=== PATIENT | male | born 1940 | race Caucasian/White ===

== ENCOUNTER → 2024-03-22 14:24 | Outpatient (CLI) | payer OTHER, SELFPAY ==
--- NOTE | 2024-03-22 14:28 | EKG_ITS ---
[facility] [address] [place] [address] Test Date: 2024-03-22 Pat Name: Kj Curtis Department: [facility] Room: Gender: Male [employer] Supervisor: VIKI : 1940 Requested By: Order Number: [id number] Reading MD: Oz Cunningham MD Measurements Intervals [place] Rate: 80 P: 49 OR: 158 QRS: -27 QRSD: 128 T: 14 QT: 402 QTc: 463 Interpretive Statements Normal sinus rhythm Right bundle branch block NO PRIOR TRACING Electronically Signed On 03-23-2024 16:16:51 PST by Oz Cunningham MD
[2024-03-22 15:00] LABS: Appearance Urine UA CLEAR; Bilirubin Urine UA NEGATIVE (NEGATIVE); Color Urine UA YELLOW; Glucose Urine UA NEGATIVE (Negative); Ketones Urine UA NEGATIVE (NEGATIVE); Leukocyte Esterase Urine UA NEGATIVE (NEGATIVE); Nitrite Urine UA NEGATIVE (Negative); Occult Blood Urine UA NEGATIVE (Negative); Protein Urine UA NEGATIVE (Negative); Specific Gravity Urine UA 1.025 (1.000-1.035); Urobilinogen Urine UA 0.2 E.U./dL (0.2)
[2024-03-22 15:09] LABS: Bacteria Urine None Seen; Culture Indicated Urine Cult Not Indicated; RBC Urine None Seen (0-5/HPF); Squamous Epithelial Cell Urine None Seen (0-5/HPF); Urine Volume 10mL (spun); WBC Urine None Seen (0-5/HPF)
[2024-03-22 15:26] LABS: Add Manual Diff / Slide Review NO; Basophils Absolute Auto 0 /uL (0-100); Basophils Percent Auto 0.7 % (0-2); Eosinophils Absolute Auto 100 /uL (0-450); Eosinophils Percent Auto 2.8 % (2-4); Hemoglobin 13.1 g/dL (13.5-17.5); Lymphocytes Absolute Auto 1100 /uL (1100-4500); Lymphocytes Percent Auto 21.7 % (25-40); Mean Corpuscular HGB Conc 34.4 % (30-36); Mean Corpuscular Hemoglobin 30.8 PG (26-34); Mean Corpuscular Volume 89.6 fL (80-100); Monocytes Absolute Auto 500 /uL (0-900); Neutrophils Absolute Auto 3200 /uL (1500-7000); Neutrophils Percent Auto 64.8 % (50-75); Platelet Count 259 X10^3/uL (150-400); Red Blood Cell Count 4.24 X10^6/uL (4.5-5.9); Red Cell Distribution Width 13.8 % (11.6-14.8)
[2024-03-22 15:33] LABS: Hemoglobin A1C% w Est Avg Glu 5.7 % (4.0-6.0)
[2024-03-22 15:41] LABS: BUN Creatinine Ratio 21.1 (6-22); Blood Urea Nitrogen 28 mg/dL (9-20); Calcium 9.9 mg/dL (8.4-10.2); Carbon Dioxide 26 mmol/L (22-32); Chloride 106 mmol/L (98-107); Estimated Glomerular Filt Rate 54 mL/min (>60); Glucose 117 mg/dL (80-110); HEMOLYSIS < 15 (0-50); Potassium 4.6 mmol/L (3.4-5.1); Sodium 137 mmol/L (137-145)
== END ==
PROVIDERS: PCP Student in an Organized Health Care Education/Training Program; Referring Provider Orthopaedic Surgery; Visit Provider Orthopaedic Surgery
DX: Z01.818 Encounter for other preprocedural examination (principal); R73.9 Hyperglycemia, unspecified; Z01.812 Encounter for preprocedural laboratory examination; N39.0 Urinary tract infection, site not specified
CPT/HCPCS: 36415; 80048; 81001; 83036; 85025; 93005; 93010

== ENCOUNTER 2024-04-11 06:11 | Day surgery (SDC) | payer OTHER, SELFPAY ==
[2024-04-08 07:24] VITALS: BMI 30.5
[2024-04-11] VITALS (11 sets, daily range): BP systolic 88–146; BP diastolic 46–85; PULSE 61–85; RESP 16–18; TEMP 35.9–36.8; O2SAT 94–98; BMI 31.6; BMI 30.6
--- NOTE | 2024-04-11 | DI.RAD.S_ITS ---
PROCEDURE: XR HIP W PEL IF DONE RT 4V INDICATIONS: ANTERIOR TOTAL RIGHT HIP TECHNIQUE: 6 intraoperative view(s) of the hip acquired. COMPARISON: None. FINDINGS: Bones: Patient is status post right hip arthroplasty, with hardware components in expected positions. The hip joint appears congruent. The visualized bony structures appear intact. Soft tissues: Overlying postoperative changes are noted. No suspicious soft tissue densities. IMPRESSION: Expected digital acquisition imaging of intra- and post-operative appearance of a hip arthroplasty. Dictated by: Mehul Ellis M.D. on 04/11/2024 at 13:22 Approved by: Mehul Ellis M.D. on 04/11/2024 at 13:23
[2024-04-11] MEDS: ACETAMINOPHEN 325 MG TABLET 975 MG PO (07:07)
[2024-04-11] MEDS: LACTATED RINGERS 1,000 ML 42 ML IV ×2 (07:07→10:07)
--- NOTE | 2024-04-11 07:19 | PM.PREOP ---
Pre-operative Note Interval Note History & Physical reviewed/Exam performed by Physician: Yes Changes to H&P: No
--- NOTE | 2024-04-11 07:28 | DI.RAD.S_ITS ---
PROCEDURE: XR HIP W PEL IF DONE RT 2V INDICATIONS: right octaviano TECHNIQUE: AP pelvis and lateral view of the hip acquired. COMPARISON: None. FINDINGS: Bones: Patient is status post right hip arthroplasty, with hardware components in expected positions. The hip joint appears congruent. The visualized bony structures appear intact. Soft tissues: Overlying postoperative changes are noted. No suspicious soft tissue densities. IMPRESSION: Expected post-operative appearance of a hip arthroplasty. Dictated by: Kaye Conner MD, PhD on 04/11/2024 at 10:56 Approved by: Kaye Conner MD, PhD on 04/11/2024 at 10:57
[2024-04-11] MEDS: VANCOMYCIN 1,000 MG in SODIUM CHLORIDE 0.9% 250 ML 250 MG IV (07:36)
[2024-04-11] MEDS: CEFAZOLIN 2 GM/100 ML PREMIX 100 ML IV ×2 (07:57→16:05)
--- NOTE | 2024-04-11 08:24 | SUR.OPER ---
Patient supine on padded Roca table, one arm on padded arm board at <90, other arm padded and secured with tape across patient's chest, both legs secured in padded traction boots and positioned per surgeon, padded post at patient's groin, pressure points checked and padded.
[2024-04-11] MEDS: BUPIVACAINE LIPOSOME 266 MG/20 ML VIAL INJ (08:37)
[2024-04-11] MEDS: BUPIVACAINE 0.25% (PF) 60 ML, EPINEPHrine 0.3 MG INJ (08:37)
[2024-04-11] MEDS: SODIUM CHLORIDE IRRIG SOLUTION 1,000 ML, TRANEXAMIC ACID 1,000 MG IRR (10:04)
--- NOTE | 2024-04-11 10:35 | PM.OP.1 ---
Operative Date/Time/Diagnoses Date of procedure: 04/11/24 Time of procedure: 08:00 Pre-op diagnosis: right hip OA Post-op diagnosis: same Procedure & Clinicians Procedure: Right total hip arthroplasty anterior approach Same procedure as scheduled: Yes Indications: The patient has had progressively worsening right hip pain with radiographic changes consistent with arthritis. Non-operative management has failed and the patient has requested total hip replacement. The risks, benefits and alternatives to surgery were discussed with the patient prior to proceeding. Risks discussed included, but were not limited to, failure to relieve pain, leg length discrepancy, dislocation, stiffness, infection, nerve damage, deep venous thrombosis, pulmonary embolism, stroke, coma, heart attack, permanent paralysis and , as well as the potential need for eventual revision of the prosthetic. Surgeon: Patti Hurtado Log Preparer: Ovidio Trujillo Anesthesia Type: General and Spinal Operative Notes Findings: Severe right hip OA, adequate stability, adequate bone Closure Type: primary Specimen(s): none sent Prosthetic devices, grafts, tissues, transplants, or devices: Hurtado and nephew size 54 R3 cup, +4 poly liner,one 6.5 mm screw, 36+ 0 femoral head, polar stem size 2 lateral Estimated Blood Loss (mL): 250 Blood products transfused: none Procedure in detail: The patient was brought to the operating room. Patient was carefully positioned in the supine position. Time-out was performed and antibiotics were given. Anesthesia was induced. He was positioned in the on the table in order to allow hyperextension of the hip. The right lower extremity was prepped and draped in a standard sterile fashion. An anterior right hip incision was made 1 fingerbreadth lateral to the anterior superior iliac spine and extended distally towards the greater trochanter. Dissection was carried out through skin and subcutaneous tissues. Superficial hemostasis was achieved. The fascia over the tensor fascia blanca was defined and incised with a knife. Two Allis clamps were used to grasp the fascia. Tensor fascia blanca was retracted laterally. A gelpi retractor was placed. Dissection was carried out down along the neck. The circumflex vessels were carefully identified and cauterized with the Aqua Mantis. A PA was used during the procedure and was essential for intraoperative retraction and safe implantation of the components. There was good visualization of the femoral neck. A Cobra was placed superior to the neck and the gluteus fibers were carefully stripped from that superior aspect of the capsule. A 2nd retractor was placed along the inferior aspect of the neck. The rectus insertion along the capsule was partially released. A 3rd retractor that was then gently placed over the rim of the acetabulum under the rectus. Capsule was carefully incised and released from the intertrochanteric line circumferentially superior to the mid sagittal line and inferiorly to the mid sagittal line until the lesser trochanter was palpable. A tag stitch was placed both in the superior and inferior limb of the capsular insertion. Along the acetabulum capsule was also released up to the mid sagittal 12:00 position. A portion of the labrum was resected. A saw was used to perform an osteotomy at the level of the intertrochanteric line and the junction of the superior femoral neck leaving approximately 1 finger breath of residual inferior neck above the lesser trochanter. A 2nd cut was made along the femoral neck at the base of the head and a napkin ring of neck was removed. Corkscrew was placed in the femoral head and the head was removed without difficulty. Retractors were then repositioned around the acetabulum. Residual labrum was resected and additional osteophytes were removed. A reamer that was 4 mm below the templated size was placed by hand in the acetabulum and it was reamed to centralize the acetabulum. It was then reamed up to 2 under the templated size and fluoroscopy was brought in to confirm the position of the reaming and depth of reaming. I reamed 1 under the anticipated size. A trial cup was placed and noted that it was appropriately sized and fluoroscopy confirmed position and depth. The component was open and inserted without difficulty fluoroscopic imaging was used to confirm that the cup had been adequately seated and was well positioned. It was further stabilized with a single screw. +4 poly liner was placed. The cup was tested and noted to be stable. Attention was then directed to the femur. The femur was gently hyperextended additional capsular release was performed as needed in order to allow adequate visualization of the proximal femur with elevation of the femur. Patient was placed in a hyperextended slightly adducted position with maximum external rotation. Box osteotome was used to check for any residual neck as well as sclerotic bone along the trochanter. [place] pepper was placed in the femur. Additional broaching was performed. Canal finder was used to determine the alignment of the canal and position. Size 1 broach was placed. The canal was then appropriately broached up to the templated size as long as there was adequate stability of the broach and serial advancement of the broach without excessive impingement. Specific attention was directed at avoiding varus attempting to direct the distal aspect of the broach more anteriorly and avoiding excessive anteversion. Trial reduction showed acceptable range of motion, good stability, no posterior impingement, baptist of leg length and appropriate lateral shuck. I also hyperflexed the hip and checked that there was no impingement anteriorly and there was good stability with flexion, adduction and internal rotation. Marcaine and Exparel were injected. The stem was placed without difficulty. Repeat trial reduction and x-ray showed acceptable overall position, length, and no evidence of the femoral fracture. Final head was placed. Wound was meticulously irrigated with normal saline. The hip was reduced and additional Exparel and Marcaine were injected. The capsule was closed with interrupted nonabsorbable sutures. The fascia of the tensor was closed with interrupted and running Vicryl. No drain was placed. Any tensor fascia blanca muscle that appeared to be contused or injured which was a minimal amount was carefully resected. Capsule around the tensor was injected with Exparel and Marcaine. The skin was closed with barbed stitches for the subcutaneous tissue and skin. We also used surgical glue. The wound was dressed sterilely. Brief Betadine soak was also used and was meticulously irrigated with normal saline. Patient was transferred to recovery room in satisfactory condition. Complications: none Post-operative Condition: stable Disposition: Acute Care Plan for aftercare: The patient will be maintained on a standard total hip replacement protocol with weight bearing as tolerated and anterior hip precautions. The patient will receive Aspirin and sequential compression devices for DVT prophylaxis. The patient will be discharged home when safe for the home environment.
[2024-04-11] MEDS: LACTATED RINGERS 1,000 ML 100 ML IV (11:24)
--- NOTE | 2024-04-11 11:25 | PC.NURSE ---
Addendum entered by Caro Bell R.N. 04/11/24 14:52: Patient up to stand and became slightly orthostatic. Blood pressure systolic 88. He did complain of nausea but that has been better now that he is sitting down. This RN will check his blood pressure in a half and hour. Original Note: Assess- Patient admitted to room 219, he had a r.total anterior hip replacement. Aquacel dressing is cdi. Patient has an epidural site to his mid lower back that is cdi, red left groing, and his incision. He had a spinal and general and has feeling to both knees but only feels slight pressure on his bilateral feet. He has LR infusing at 100cc/hr and he is resting now.
--- NOTE | 2024-04-11 12:03 | PT-IP ANOTE ---
PT order received and PT reviews chart. Pt BP and HR 118/75, 67 in LUE. PT receives PLOF information. Pt with low pain but unable to fully feel LEs at this time and cannot move B ankles or knees. Will hold PT assessment and OOB with PT until a later time. Pt can get up with nsg as appropriate as well.
[2024-04-11] MEDS: IBUPROFEN 400 MG TABLET PO ×2 (13:02→18:52)
[2024-04-11] MEDS: ACETAMINOPHEN 325 MG TABLET 650 MG PO ×2 (13:02→18:52)
[2024-04-11] MEDS: OXYCODONE IR 5 MG TABLET PO ×3 (13:03→18:51)
--- NOTE | 2024-04-11 13:17 | PT.IIE ---
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 Basement and pt does not have to go down there 2 steps and no rail, left corner of house he hands onto to ascend steps Home Environment Walk in Shower,Built-In Shower Seat Home Equipment Front Wheel Walker,Straight Cane,Raised Toilet Seat w/ Armrests,Hand Held Shower,Grab Bars Near Toilet,Grab Bars In Shower Employment Status Retired M2 PT-IP Current Condition Start: 04/11/24 11:25 Freq: NEEDED Status: Active Protocol: Document 04/11/24 12:49 MB (Rec: 04/11/24 13:17 MB [id number]) Physical Therapy Current Condition Current Condition Evaluation Date 04/11/24 Treatment Diagnosis Right anterior THR M3 PT-IP Subjective Start: 04/11/24 11:25 Freq: NEEDED Status: Active Protocol: Document 04/11/24 12:49 MB (Rec: 04/11/24 13:17 MB [id number]) Subjective Physical Therapy Visit Type Type Initial Evaluation Visit Start Time 12:49 Visit Stop Time 13:07 Number of HAND SLITTER Visits 0 Physical Therapy Visit Comments Patient Comments Pt is agreeable to PT, he can feel his legs more now than he could 50 minutes ago. Therapy Pain Assessment Pain When Pain Assessed During Mobility Pain Present Pain Present Pain Reported Location Right hip and thigh Intensity 5 Scale Used Numeric (0 - 10) M4 PT-IP Mobility and Gait Start: 04/11/24 11:25 Freq: NEEDED Status: Active Protocol: Document 04/11/24 12:49 MB (Rec: 04/11/24 13:17 MB [id number]) PT-Bed Mobility Assessment Supine to Sit Supine to Sit Standby Assistance,1 Person Assistance,Head of Bed Elevated,Bedrails Scooting Scooting to Edge of Bed Standby Assistance PT-Transfer Assessment Sit to and From Stand Sit to and from Stand Contact Guard Assistance Equipment Transfer Assistive Device Gait Belt,Front Wheeled Walker Orthotic/Prosthetic Devices or Brace: No Transfers Transfer Destination Chair Transfer Technique Stepping Transfer Ability Level of Assist Minimal Assistance,1 Person Assistance,Use of Upper Extremities Comments Mobility Comments Pt states he does not know if he can move his right leg d/t pain and so PT makes loop in gait belt and puts around pt's right foot and he uses it to scoot his leg to the right Cues for stepping and pt has trouble following cues BP and HR in LUE: hook lying 138/78, 76; standing 133/75, 92; standing after short gait 143/74, 91. Gait Assessment Gait Gait Assistance Required: Minimum Assistance Distance (Feet) 2 Able to Maintain Weight Bearing Status Yes During Gait Assistive Devices Assistive Device Gait Belt,Front Wheeled Walker Orthotic/Prosthetic Devices or Brace: No Gait Deviations General Gait Pattern Antalgic,Decreased Stride Length,Decreased Feet Clearance,Step-to Gait Factors Limiting Gait Function Factors Limiting Gait Function Decreased Activity Tolerance, Decreased Sensation,Decreased Strength,Difficulty Following Directions,Incoordination, Limited Range of Motion,Pain, Poor Balance,Poor Safety Awareness Comments Gait Comments Poor awareness/proprioception legs and safety awareness as well as ability to understand cues for step-to for initial gait pattern to allow gait to chair and so PT stops cueing for this PT-Balance Assessment Sitting Balance and Reactions Static Sitting Balance Ability Good Dynamic Sitting Balance Ability Good Standing Balance and Reactions Static Standing Balance Ability Good Dynamic Standing Balance Ability Fair Device Used RW M5 PT-IP Objective Assessments Start: 04/11/24 11:25 Freq: NEEDED Status: Active Protocol: Document 04/11/24 12:49 MB (Rec: 04/11/24 13:17 MB [id number]) Orientation Orientation/Cognition Level of Alertness Alert Orientation Name,Age,Birthday,Month,Date, Year,Day of Week,Place, Situation Language Function Ability No Deficits Noted Safety Awareness Decreased Safety Awareness Memory Description No Deficits Noted Gross Range of Motion Upper Extremity ROM Impairments Defer to OT Lower Extremity ROM Assessment Right Impaired Strength Lower Extremity Strength Assessment Right Impaired Comments Strength Comments Pt limites right hip and knee movement and does not tolerate MMT d/t pain Coordination Assessment Gross Coordination Gross Coordination Impaired Sensation Assessment Comments Sensation Comments LE sensation not completely returned/decreased proprioception and pins and needles Muscle Tone Muscle Tone WNL Yes M6 PT-IP Treatment Start: 04/11/24 11:25 Freq: NEEDED Status: Active Protocol: Document 04/11/24 12:49 MB (Rec: 04/11/24 13:17 [id number]) Physical Therapy Treatment Exercises Exercises Ankle Pumps,Gluteal Sets,Quad Sets,Heel Slides Education Education Provided Precautions,Weight Bearing Status,Post-Op Packet,Safety Other Treatments Other Treatment Performed Demo stair training with step up with good foot first and then sore leg, demo HS that he will perform in supine M7 PT-IP Assessment and Plan Start: 04/11/24 11:25 Freq: NEEDED Status: Active Protocol: Document 04/11/24 12:49 MB (Rec: 04/11/24 13:17 [id number]) PT Summary Assessment and Plan Potential Rehabilitation Potential Good Status of Condition at Evaluation Evolving Summary Impairments Pain,ROM,Strength,Balance, Coordination,Sensation,Bed Mobility,Transfers,Gait, Activity Tolerance Progress Towards Goals Slow Progress due to Medical Issues Assessment Summary Pt is an 84 y/o male s/p same day right anterior THR. PT checks on pt twice and he has little sensation at 1200 and more sensation at 1249. He c/o pins and needles pain in right hip and thigh with bed mobility and states that he does not know if he will be able to move. Nsg to bring in pain medication. PT sets up looped gait belt for pt to use to help get right leg to the right EOB and pt uses this. He moves slowly and uses HOB and bed rail to get up to EOB. He is not orthostatic. He has decreased gait tolerance this afternoon and trouble following stepping cues. Not ready to try stair training at this time. PT ed pt and in HEP, precautions and PT demos stair training and ed that he will need to use RW and no SPC at d/c for gait. Pt is on wait list for OPPT. Goals Bed Mobility Goal Independent Transfer Goal Independent,Front Wheeled Walker Gait Goal Independent,Front Wheel Walker Gait Distance 150 Other Goals Pt will ascend and descend 2 steps with LRAD and no more than min A to allow safe home entrance. Days to Meet Goals 2 Frequency of Treatment Frequency Of Treatment Twice a Day Treatment Plan Physical Therapy Treatment Plan Bed Mobility Training,Transfer Training,Gait Training, Therapeutic Exercise,Balance Retraining,Post Op Education, Discharge Planning,Hot or Cold Pack,Neuromuscular Re-ed, Coordination Retraining,Manual Therapy Precautions Other Precautions No hyperextension right hip Weight Bearing Status Weight Bearing Status Weight Bear as Tolerated Recommendations To Nursing Amount of Assist Needed 1 Person Assist Discharge Recommendations PT Discharge Recommendations Home with 31/10 Assist Available,Outpatient PT Transportation Needs at Discharge Private Vehicle
--- NOTE | 2024-04-11 15:28 | PT-IP ANOTE ---
PT checks back on pt who is up in the chair and he reports high pain if he moves and he received pain medication already. asking about more pain medication and PT re-ed pt and that ns states it is not time. MAIL ROOM reports his BP dropped with standing. Will not progress gait or step at this time and con't PT efforts at a later time or date.
--- NOTE | 2024-04-11 15:51 | OT.IPNOTE ---
Pt having high pain and low BP. To see pt tomorrow for OT eval.
[2024-04-11] MEDS: hydrOXYzine HCL 25 MG TABLET PO (21:01)
[2024-04-11] MEDS: ATORVASTATIN 20 MG TABLET 40 MG PO (21:01)
[2024-04-11] MEDS: TAMSULOSIN 0.4 MG CAPSULE 0.8 MG PO (21:01)
[2024-04-11] MEDS: diphenhydrAMINE 25 MG TABLET PO (21:01)
[2024-04-11] MEDS: DOCUSATE 100 MG CAPSULE PO (21:02)
[2024-04-11] MEDS: FINASTERIDE 5 MG TABLET PO (21:02)
[2024-04-11] MEDS: ASPIRIN EC 81 MG TABLET PO (21:02)
[2024-04-12] MEDS: CEFAZOLIN 2 GM/100 ML PREMIX 100 ML IV (01:05)
[2024-04-12] MEDS: hydrOXYzine HCL 25 MG TABLET PO ×2 (01:29→09:26)
[2024-04-12] MEDS: OXYCODONE IR 5 MG TABLET PO ×2 (01:29→09:27)
[2024-04-12 06:39] LABS: Hematocrit 33.6 % (41-53); Hemoglobin 11.5 g/dL (13.5-17.5)
[2024-04-12 08:00] VITALS: BP 120/64; PULSE 60; RESP 19; TEMP 36.4; O2SAT 97
--- NOTE | 2024-04-12 08:46 | P.DS_ITS ---
History of Present Illness History of Present Illness Date Patient Seen: 04/12/24 Time Patient Seen: 08:30 Chief complaint: OPB Narrative: The patient has had progressively worsening right hip pain with radiographic changes consistent with arthritis. Non-operative management has failed and the patient has requested total hip replacement. The risks, benefits and alternatives to surgery were discussed with the patient prior to proceeding. Risks discussed included, but were not limited to, failure to relieve pain, leg length discrepancy, dislocation, stiffness, infection, nerve damage, deep venous thrombosis, pulmonary embolism, stroke, coma, heart attack, permanent paralysis and , as well as the potential need for eventual revision of the prosthetic. Discharge Providers Provider Discharge Date: 04/12/24 Primary care physician: Shirley Mitchell MD Consults: 04/11/24 07:27 Consult to Anesthesiology Routine Comment: Consulting Provider: Anesthesiologist Reason for consultation: Regional block for post operative pain control 04/11/24 11:06 Consult to Discharge Planning Routine Comment: Consult to Occupational Therapy Evaluate & Treat Comment: Physician Instructions: Evaluate and treat Consult to Physical Therapy Evaluate & Treat Comment: Physician Instructions: post op MONTY protocol Discharge provider: Sher Benjamin PA-C Summary Hospital Course Discharge Diagnosis: right hip OA Hospital Course: Procedure: Right total hip arthroplasty anterior approach Same procedure as scheduled: Yes Surgeon: Patti Hurtado Senior Research Consultant: Ovidio Trujillo Anesthesia Type: General and Spinal Operative Notes Findings: Severe right hip OA, adequate stability, adequate bone Closure Type: primary Specimen(s): none sent Prosthetic devices, grafts, tissues, transplants, or devices: Hurtado and nephew size 54 R3 cup, +4 poly liner,one 6.5 mm screw, 36+ 0 femoral head, polar stem size 2 lateral Estimated Blood Loss (mL): 250 Blood products transfused: none Status at Discharge Cognitive/behavioral status at discharge: oriented Functional status at discharge: uses cane/walker Overall status at discharge: patient is back to baseline Time Spent with Patient Time spent: Less than 30 minutes Exam Vital Signs (past 8 hours): Oxygen Delivery Method Room Air Oxygen Flow Rate 0 Narrative Exam Narrative: Patient found sitting comfortably in bed today. Only complaint is having some cramping over his right hip along the surgical site. Otherwise pain is controlled with oral medications. Denies any new numbness or tingling down his right leg. Denies any nausea vomiting fever or chills. 5/5 strength in hip flexors, quadriceps, hamstrings, DF, PF, EHL bilaterally. Sensation to light touch intact throughout BLE. Calves soft, compressible, nontender. ?Dressing placed intraoperatively CDI. Resp Effort & Inspection: normal respiratory effort and able to speak in complete sentences Objective Labs 04/12/24 06:21 Labs: Laboratory Results - last 24 hr 04/12/24 06:21 Hgb 11.5 L Hct 33.6 L PFSH Medical History History of COVID-19 (2019) BCC (basal cell carcinoma) Pre-diabetes HLD (hyperlipidemia) Neoplasm of uncertain behavior of right kidney BPH w urinary obs/LUTS Incomplete emptying of bladder Prostate cancer (~2019) Abnormal prostate biopsy Nodular prostate Surgical History Hx of LASIK History of surgery History of back surgery (~1979) H/O circumcision Social History household members: spouse Smoking Status: Never smoker alcohol intake: current Discharge Assessment & Plan Assessment and Plan Assessment: Status post right MONTY Plan of Treatment: Discharge to home. Ambulate as tolerated with assistive devices. Aspirin 81 mg twice a day for 6 weeks for DVT prevention. Baseline pain relief with acetaminophen 650 mg q.6 hours as needed and ibuprofen 400 mg q.4 hours PRN. Patient has been prescribed oxycodone 5 mg q.4 hours for any breakthrough pain. Initiate physical therapy in the next 5-10 days. Follow up in clinic in 2 weeks for wound check. Discharge Plan Discharge Plan Patient Disposition: Home Provider Discharge Comment: DC pending PT approval Discharge orders & Medications Discharge Orders: Discharge (Order); Ordered 04/12/24 Ordered By: Sher Benjamin Prescriptions: New aspirin 81 mg Tablet,Delayed Release (Dr/Ec) 81 mg PO BID Qty: 90 0RF acetaminophen 325 mg Tablet 650 mg PO Q6H PRN (Reason: Fever/Mild Pain (1-3)) Qty: 120 0RF ibuprofen 400 mg Tablet 400 mg PO Q4H PRN (Reason: Pain, Mild (1-3)) Qty: 100 0RF hydroxyzine HCl 25 mg Tablet 25 mg PO Q6H PRN (Reason: Nausea) Qty: 40 1RF docusate sodium 100 mg Capsule 100 mg PO BID Qty: 20 0RF Continued atorvastatin 40 mg Tablet 40 mg PO BEDTIME tamsulosin 0.4 mg Capsule 0.8 mg PO BEDTIME Aleve PM 220-25 mg Tablet 1 tab PO BEDTIME finasteride 5 mg tablet 5 mg PO BEDTIME omega-3 fatty acids [Fish Oil Concentrate] 1,000 mg capsule 1,000 mg PO DAILY Follow up/Referrals: Shirley Mitchell MD [Primary Care Provider] - Diet/Activity/Treatments Diet: Diet as Tolerated Activity: Ambulate multiple times a day. Use a cane or walker as needed. Full weight on leg. Cold/Heat Therapy: Use ice multiple times a day. Skin/Wound/Dressing Care Skin care: Leave dressing on. Okay to shower Report to your healthcare provider any signs of infection, such as:: chills, fever, night sweats, unusual drainage and unusual redness Dressing: Leave dressing in place until follow up in office. No bathing or otherwise soaking incision. Call the office if the dressing becomes saturated inside. Visit Report/Discharge Packet Instructions: DI for Hip Replacement, DI for Prescription Opioid Use Stand Alone Forms: Patient Portal/API, Surgery Discharge Discharge Data Primary Care Provider: Shirley Mitchell Attending Provider: Patti Hurtado VTE Deep Vein Thrombosis/Pulmonary Embolism Present on Admission: No
[2024-04-12] MEDS: ASPIRIN EC 81 MG TABLET PO (09:00)
[2024-04-12] MEDS: ACETAMINOPHEN 325 MG TABLET 650 MG PO (09:26)
[2024-04-12] MEDS: IBUPROFEN 400 MG TABLET PO (09:26)
[2024-04-12] MEDS: FISH OIL 1,000 MG CAPSULE 1000 MG PO (09:26)
[2024-04-12] MEDS: DOCUSATE 100 MG CAPSULE PO (09:26)
--- NOTE | 2024-04-12 10:30 | PT.IPTN ---
Current Diagnoses Unilateral primary osteoarthritis, right hip (04/11/24) Surgery Performed Operation Date: 04/11/24 07:45 Actual Procedures p Total Hip Arthroplasty/Anterior Approach(Right) - Patti Hurtado MD Physical Therapy Treatment Note M2 PT-IP Current Condition Start: 04/11/24 11:25 Freq: NEEDED Status: Active Protocol: Document 04/11/24 12:49 MB (Rec: 04/11/24 13:17 MB [id number]) Physical Therapy Current Condition Current Condition Evaluation Date 04/11/24 Treatment Diagnosis Right anterior THR M3 PT-IP Subjective Start: 04/11/24 11:25 Freq: NEEDED Status: Active Protocol: Document 04/12/24 10:53 TS (Rec: 04/12/24 11:03 TS [id number]) Subjective Physical Therapy Visit Type Type Treatment Note Visit Start Time 10:30 Visit Stop Time 10:50 Number of CONTACT LENS CURVE GRINDER Visits 1 Physical Therapy Visit Comments Patient Comments Pt found resting in bed, he is agreeable to PT. Therapy Pain Assessment Pain When Pain Assessed During Mobility Pain Present Pain Present Pain Reported M4 PT-IP Mobility and Gait Start: 04/11/24 11:25 Freq: NEEDED Status: Active Protocol: Document 04/12/24 10:53 TS (Rec: 04/12/24 11:03 TS [id number]) PT-Bed Mobility Assessment Supine to Sit Supine to Sit Minimal Assistance,1 Person Assistance,Head of Bed Elevated,Bedrails Scooting Scooting to Edge of Bed Standby Assistance PT-Transfer Assessment Sit to and From Stand Sit to and from Stand Minimal Assistance Equipment Transfer Assistive Device Gait Belt,Front Wheeled Walker Orthotic/Prosthetic Devices or Brace: No Comments Mobility Comments Supine to sit Dalton with CURING OVEN TENDER for uprighting trunk. STS with FWW Dalton for standing balance while pt uses urinal. Pt ambulates 20' SBA with FWW, pt requires cues for step sequencing, has difficulty recalling R from L. He performs stairs x2 with use of single rail and CURING OVEN TENDER. pt was left sitting in the chair, all needs met. Gait Assessment Gait Gait Assistance Required: Standby Assistance Distance (Feet) 20 Able to Maintain Weight Bearing Status Yes During Gait Assistive Devices Assistive Device Gait Belt,Front Wheeled Walker Orthotic/Prosthetic Devices or Brace: No Gait Deviations General Gait Pattern Antalgic,Decreased Stride Length,Decreased Feet Clearance,Step-to Gait Factors Limiting Gait Function Factors Limiting Gait Function Decreased Activity Tolerance, Decreased Sensation,Decreased Strength,Difficulty Following Directions,Incoordination, Limited Range of Motion,Pain, Poor Balance,Poor Safety Awareness Stair Climbing Assessment Evaluation Level of Assist On Stairs Contact Guard Assistance,1 Person Assistance Devices Stair Climbing Assistive Devices Right Railing Technique/Endurance Stair Climbing Direction Ascend and Descend Stair Climbing Technique Step to Step Number of Steps Climbed 2 PT-Balance Assessment Sitting Balance and Reactions Static Sitting Balance Ability Good Dynamic Sitting Balance Ability Good Standing Balance and Reactions Static Standing Balance Ability Good Dynamic Standing Balance Ability Fair Device Used FWW M5 PT-IP Objective Assessments Start: 04/11/24 11:25 Freq: NEEDED Status: Active Protocol: Document 04/11/24 12:49 MB (Rec: 04/11/24 13:17 MB [id number]) Orientation Orientation/Cognition Level of Alertness Alert Orientation Name,Age,Birthday,Month,Date, Year,Day of Week,Place, Situation Language Function Ability No Deficits Noted Safety Awareness Decreased Safety Awareness Memory Description No Deficits Noted Gross Range of Motion Upper Extremity ROM Impairments Defer to OT Lower Extremity ROM Assessment Right Impaired Strength Lower Extremity Strength Assessment Right Impaired Comments Strength Comments Pt limites right hip and knee movement and does not tolerate MMT d/t pain Coordination Assessment Gross Coordination Gross Coordination Impaired Sensation Assessment Comments Sensation Comments LE sensation not completely returned/decreased proprioception and pins and needles Muscle Tone Muscle Tone WNL Yes M6 PT-IP Treatment Start: 04/11/24 11:25 Freq: NEEDED Status: Active Protocol: Document 04/12/24 10:53 TS (Rec: 04/12/24 11:03 [id number]) Physical Therapy Treatment Education Education Provided Precautions,Weight Bearing Status,Post-Op Packet,Safety M7 PT-IP Assessment and Plan Start: 04/11/24 11:25 Freq: NEEDED Status: Active Protocol: Document 04/12/24 10:53 TS (Rec: 04/12/24 11:03 [id number]) PT Summary Assessment and Plan Potential Rehabilitation Potential Good Summary Impairments Pain,ROM,Strength,Balance, Coordination,Sensation,Bed Mobility,Transfers,Gait, Activity Tolerance Progress Towards Goals Slow Progress due to Medical Issues Assessment Summary Kj is making progress with his mobility. He requires handrail assist for bed mobility. He progressed his gait to ~20'SBA with FWW. He has some difficulty recalling step sequencing. He progressed to stairs x2 and performed well. PT is recommending pt return home with assist. Goals Bed Mobility Goal Independent Transfer Goal Independent,Front Wheeled Walker Gait Goal Independent,Front Wheel Walker Gait Distance 150 Other Goals Pt will ascend and descend 2 steps with LRAD and no more than min A to allow safe home entrance. Days to Meet Goals 2 Frequency of Treatment Frequency Of Treatment Twice a Day Treatment Plan Physical Therapy Treatment Plan Bed Mobility Training,Transfer Training,Gait Training, Therapeutic Exercise,Balance Retraining,Post Op Education, Discharge Planning,Hot or Cold Pack,Neuromuscular Re-ed, Coordination Retraining,Manual Therapy Precautions Other Precautions No hyperextension right hip Weight Bearing Status Weight Bearing Status Weight Bear as Tolerated Recommendations To Nursing Amount of Assist Needed 1 Person Assist Discharge Recommendations PT Discharge Recommendations Home with Assistance, Outpatient PT Transportation Needs at Discharge Private Vehicle
--- NOTE | 2024-04-12 11:30 | OT.IP.EVAL ---
Current Diagnoses Unilateral primary osteoarthritis, right hip (04/11/24) Surgery Performed Operation Date: 04/11/24 07:45 Actual Procedures p Total Hip Arthroplasty/Anterior Approach(Right) - Patti Hurtado MD Past Medical History (Last Reviewed 04/11/24 @ 06:48 by Shirley Engle, RN) Abnormal prostate biopsy BCC (basal cell carcinoma) BPH w urinary obs/LUTS History of COVID-19 (2019) HLD (hyperlipidemia) Incomplete emptying of bladder Neoplasm of uncertain behavior of right kidney Nodular prostate Pre-diabetes Prostate cancer (~2019) Surgical History (Last Reviewed 04/11/24 @ 06:48 by Shirley Engle, RN) H/O circumcision History of back surgery (~1979) History of surgery Hx of [facility] Occupational Therapy Inpatient Evaluation/Re-Eval M1 PT/OT-IP Prior Functional Status Start: 04/11/24 11:25 Freq: NEEDED Status: Active Protocol: Document 04/12/24 11:32 [facility] (Rec: 04/12/24 11:45 [facility] [id number]) Medical Review Prior Functional Status Medical History Reviewed Yes Diet/Fluid Consistency Regular Communication WNLs Mobility and Gait I without AD Activities of Daily Living and IADL's I, drove. Pt's assist with right sock. Social History Household Members spouse Living Arrangements House Number of Floors (Floors) Two Floors Number of Stairs To Enter/Railing? Basement and pt does not have to go down there 2 steps and no rail, left corner of house he hands onto to ascend steps Home Environment Walk in Shower,Built-In Shower Seat Home Equipment Front Wheel Walker,Straight Cane,Raised Toilet Seat w/ Armrests,Hand Held Shower,Grab Bars Near Toilet,Grab Bars In Shower Employment Status Retired M2 OT-IP Current Condition Start: 04/12/24 11:31 Freq: Status: Active Protocol: Document 04/12/24 11:32 [facility] (Rec: 04/12/24 11:45 [facility] [id number]) Occupational Therapy Current Condition Current Condition Evaluation Date 04/12/24 Treatment Diagnosis S/P R MONTY Anterior Diagnosis Onset Date 04/11/24 M3 OT- IP Subjective and Pain Start: 04/12/24 11:31 Freq: Status: Active Protocol: Document 04/12/24 11:32 [facility] (Rec: 04/12/24 11:45 [facility] [id number]) OT- Subjective Occupational Therapy Visit Type Type Initial Evaluation Visit Start Time 10:59 Visit Stop Time 11:30 Occupational Therapy Visit Comments Patient Comments Pt not wanting to shower and agreed to get dressed. Patient/Caregiver Goals TO go home. OT Pain Assessment Pain When Pain Assessed At Rest Pain Present Pain Present Pain Reported Location Right hip and thigh Intensity 6 M4 OT- IP ADL's Start: 04/12/24 11:31 Freq: Status: Active Protocol: Document 04/12/24 11:32 [facility] (Rec: 04/12/24 11:45 [facility] [id number]) OT [id number] Comments OT Self-Feeding Comments NOt at meal time. OT ADL-Grooming Comments OT Grooming Comments NOt performed. OT ADL-Oral Care Comments Oral Care Comments NOt performed. OT ADL-Dressing General Eval Lower Body Dressing Ability Minimal Assistance Areas Needing Assistance Underpants/Brief,Pants/Shorts, Socks,Shoes Assistive Devices Dressing Assistive Devices Reinforcing Steel Erector,Sock Aid Comments OT Dressing Comments Pt's getting down to her knee to assist pt and needing assist to get up. Suggested pt get LB dressing equipment and to be sure to use proper body mechanics or sit down to assist pt. OT ADL-Toileting Comments OT Toileting Comments Suggested pt use a urinal at night. OT ADL-Bathing Comments OT Bathing Comments Pt will benefit from a shower chair. M5 OT- IP IADL's Start: 04/12/24 11:31 Freq: Status: Active Protocol: Document 04/12/24 11:32 [facility] (Rec: 04/12/24 11:45 [facility] [id number]) OT-Instrumental Activities of Daily Living Home Safety Awareness Home Safety Comments Pt is a bit groggy and bets to have assist from his at this time. Meal Preparation Meal Preparation Caregiver Provides Assist Clinical Safety Specialist Clinical Safety Specialist Caregiver Provides Assist M6 OT- IP Functional Cognition Start: 04/12/24 11:31 Freq: Status: Active Protocol: Document 04/12/24 11:32 [facility] (Rec: 04/12/24 11:45 [facility] [id number]) Cognitive Factors Limiting Selfcare Function Cognitive Ability Level of Alertness Alert,Drowsy Patient Orientation Name,Place,Situation Attention Span Ability Capable of Focused Attention, Capable of Sustained Attention Ability to Follow Commands Able to Follow One Step Commands Safety Awareness Underestimates Need for Assistance Cognitive Comments Cognitive Assessment Comments Pt a bit impulsive and needing reminders to slow down and use the FWW as trying to stand without. OT- Vision and Hearing OT- Hearing Assessment OT- Hearing Assessment WFL M7 OT- IP Mobility and Balance Start: 04/12/24 11:31 Freq: Status: Active Protocol: Document 04/12/24 11:32 [facility] (Rec: 04/12/24 11:45 [facility] [id number]) OT- Bed Mobility Assessment Supine to Sit Supine to Sit Assist Minimal Assistance Sit to Supine Sit to Supine Assist Minimal Assistance OT-Transfer Assessment Sit to and From Stand Sit to and from Stand Contact Guard Assistance Transfers Transfer Ability Standby Assistance Technique Transfer Destination Bed,Chair Devices Transfer Assistive Devices Gait Belt,Front Wheeled Walker Comments Mobility Comments GINGER to assist with his RLE into and out fo the bed at this time. Pt's able to assist and also trained how to assist him with gait belt and transfers. Suggested pt have neighbor to help assist pt into the house. OT- Balance Assessment Sitting Balance and Reactions Static Sitting Balance Ability Good Dynamic Sitting Balance Ability Good Standing Balance and Reactions Static Standing Balance Ability Good Dynamic Standing Balance Ability Good M8 OT- IP Objective Assessments Start: 04/12/24 11:31 Freq: Status: Active Protocol: Document 04/12/24 11:32 [facility] (Rec: 04/12/24 11:45 [facility] [id number]) OT Gross Range of Motion Upper Extremity Range of Motion ROM Impairments WFL for needs OT Strength Comments Strength Comments WFL for needs. M9 OT- IP Assessment and Plan Start: 04/12/24 11:31 Freq: Status: Active Protocol: Document 04/12/24 11:32 [facility] (Rec: 04/12/24 11:45 [facility] [id number]) OT Summary Assessment and Plan Potential Rehabilitation Potential Excellent Analytic Complexity at Evaluation Low Summary OT Impairments Pain,Balance,Functional Mobility,Dressing,Toileting, Bathing,Toilet Transfers, Shower Transfers Progress Towards Goals Progressing Toward Goals Assessment Summary Pt low complexity and main barriers are pain, steps, and needing assist to help get his RLE into and out of the bed. Pt to go home with his to assist 31/10 and go to outpt PT. Goals Self-Feeding Goal Independent Grooming Goal Independent Dressing Goal Independent,Reinforcing Steel Erector,Sock Aid Toileting Goal Independent Bathing Goal Standby Assistance Toilet Transfer Goal Independent Shower Transfer Goal Independent,Shower Chair Days to Meet Goals 5 Frequency of Treatment Other frequency 5x/week Treatment Plan OT Treatment Plan ADL Training,Functional Mobility,Patient/Family Education,Discharge Planning Discharge Recommendations OT Discharge Recommendations Home with 31/10 Assist Available,Outpatient PT Home Equipment Needs shower chair, LB dressing equipment Transportation Needs at Discharge Private Vehicle
--- NOTE | 2024-04-12 13:34 | CM.DANOTE ---
Initial DCP Assessment Note Pt is a 84 yo male, resident of [place], now POD#1 from [facility]t [facility]. PCP: Shirley Mitchell Payer: Rashel CONWAY Reviewed chart, pt discussed in multidisciplinary rounds this morning. Therapy has cleared pt for return home w/family to assist and pt has planned for home, DC order from Ortho has already been initiated this morning. No barriers identified at this time to patient's safe discharge home w/family to assist; close outpatient f/u recommended. CM team will plan to follow clinical course closely in case any DC needs or concerns arise. TERESA Novak Discharge Planning/Care Management CM Discharge Assessment Start: 04/12/24 13:31 Freq: Status: Active Protocol: Document 04/12/24 13:31 TERRA (Rec: 04/12/24 13:34 TERRA [id number]) Discharge Planning Assessment Assigned Portal Administrator TERESA Alejo DPOA/Assigned Designee Name Marah Curtis, spouse Contact Information [phone] Advance Directives? Yes Advance Directives on File No History Provided By Patient,Medical Record Prior Living Arrangements House Household Members spouse Type of transporation used prior to Drives own vehicle admit Independent with ADL's Yes Is patient alert and oriented? Yes Needs Assistance With Home Chores / Shopping Patient/Family Preference OP PT Therapy Barriers to Discharge No Discharge Plan Home Transportation Arrangement Spouse Referrals Initiated None needed
--- NOTE | 2024-04-12 14:16 | PC.NURSE ---
Discharge: Pt feels ready to d/c to home. PA here and gave d/c instructions. Seen by PT/OT and considered safe to go home. Discharge instructions given and reviewed. Po pain meds effective per pt. Vds w/out diff. Tolerates diet w/out problems. Feels ready to go home. Questions answered. Pt d/c to home via auto w/spouse.
== END 2024-04-12 12:15 | disposition home or self-care (01) ==
LOC: OR 06:12 → AC 06:13
PROVIDERS: PCP Student in an Organized Health Care Education/Training Program; Referring Provider Orthopaedic Surgery; Visit Provider Orthopaedic Surgery
PROC: (CPT 27130; principal; 2024-04-11 07:45)
DX: M16.11 Unilateral primary osteoarthritis, right hip (principal); M25.751 Osteophyte, right hip
CPT/HCPCS: 27130; 36415; 73502; 73503; 76000; 85014; 85018; 97161; 97165; 97530; 97535; C1776; A9270; C1713; J0171; J0666; J0690; J1100; J2405; J2704; J3010

== ENCOUNTER 2024-05-19 17:00 | Emergency (ER) | payer OTHER, SELFPAY ==
[2024-04-11 11:14] VITALS: BMI 30.6
[2024-05-19] VITALS (15 sets, daily range): BP systolic 100–129; BP diastolic 56–83; PULSE 62–91; RESP 11–27; TEMP 36.8; O2SAT 95–99; BMI 30.4
--- NOTE | 2024-05-19 17:13 | EKG_ITS ---
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
[2024-05-19 17:43] LABS: Add Manual Diff / Slide Review NO; Basophils Absolute Auto 100 /uL (0-100); Basophils Percent Auto 0.8 % (0-2); Eosinophils Absolute Auto 200 /uL (0-450); Eosinophils Percent Auto 2.5 % (2-4); Hematocrit 29.9 % (41-53); Lymphocytes Absolute Auto 600 /uL (1100-4500); Lymphocytes Percent Auto 7.5 % (25-40); Mean Corpuscular HGB Conc 33.5 % (30-36); Mean Corpuscular Hemoglobin 30.6 PG (26-34); Mean Corpuscular Volume 91.2 fL (80-100); Monocytes Absolute Auto 600 /uL (0-900); Monocytes Percent Auto 8.4 % (3-14); Neutrophils Absolute Auto 6100 /uL (1500-7000); Neutrophils Percent Auto 80.8 % (50-75); Platelet Count 435 X10^3/uL (150-400); Red Blood Cell Count 3.28 X10^6/uL (4.5-5.9); Red Cell Distribution Width 15.9 % (11.6-14.8); White Blood Cell Count 7.6 X10^3/uL (4.5-11.0)
[2024-05-19 17:47] LABS: Alanine Aminotransferase 263 IU/L (<50); Albumin 3.8 g/dL (3.5-5.0); Alkaline Phosphatase 495 U/L (38-126); Aspartate Aminotransferase 114 IU/L (17-59); BUN Creatinine Ratio 22.6 (6-22); Bilirubin Total 2.3 mg/dL (0.2-1.3); Blood Urea Nitrogen 24 mg/dL (9-20); Calcium 10.1 mg/dL (8.4-10.2); Carbon Dioxide 24 mmol/L (22-32); Chloride 100 mmol/L (98-107); Estimated Glomerular Filt Rate > 60 mL/min (>60); Globulin 3.7 g/dL (1.7-4.1); Glucose 133 mg/dL (80-110); HEMOLYSIS 30 (0-50); Potassium 4.8 mmol/L (3.4-5.1); Sodium 133 mmol/L (137-145); Total Protein 7.5 g/dL (6.3-8.2)
--- NOTE | 2024-05-19 18:12 | ED_ITS ---
HPI - Back Pain/Injury <Debbie Pederson, DO - Last Filed: 05/21/24 03:34> General Chief Complaint: Back Pain/Injury Stated Complaint: Back-Nerve Pain Time Seen by Provider: 05/19/24 17:36 Source: patient and EMS History of Present Illness HPI Narrative: Patient is a 84-year-old male history of angina recently admitted to [facility] on Pradaxa with chronic back pain presenting today with worsening back pain. No change in bowel or bladder habits has some numbness and tingling. Has been taking Dilaudid for pain. Reports that he had an MRI of his back over [facility]. He uses a walker. He was discharged 4 days ago reports he was getting up and moving around however due to pain not able to get up as much. Denies any sort of abdominal pain chest pain shortness of breath nausea vomiting fever or any other symptoms. He has not had any injections not on any sort of steroid does not have diabetes Related Data Home Medications Medication Instructions Recorded Confirmed omega-3 fatty acids 1,000 mg 1,000 mg PO DAILY 11/06/19 05/19/24 capsule (Fish Oil Concentrate) atorvastatin 40 mg tablet 40 mg PO BEDTIME 04/08/24 05/19/24 finasteride 5 mg tablet 5 mg PO BEDTIME 04/08/24 05/19/24 naproxen 220 mg-diphenhydramine 25 1 tab PO BEDTIME 04/08/24 05/19/24 mg tablet (Aleve PM) tamsulosin 0.4 mg capsule 0.8 mg PO BEDTIME 04/08/24 05/19/24 clopidogrel 75 mg tablet 75 mg DAILY 05/19/24 05/19/24 dabigatran etexilate 150 mg capsule 150 mg PO DAILY 05/19/24 05/19/24 glucosamine sulfate 750 mg tablet 1,500 mg PO DAILY 05/19/24 05/19/24 hydromorphone 2 mg tablet 1 mg PO Q6H PRN severe pain 05/19/24 05/19/24 isosorbide mononitrate 30 mg 30 mg PO DAILY 05/19/24 05/19/24 tablet,extended release 24 hr levothyroxine 25 mcg tablet 25 mcg PO QAM 05/19/24 05/19/24 metoprolol tartrate 25 mg tablet 25 mg PO BID 05/19/24 05/19/24 nitroglycerin 0.4 mg sublingual 0.4 mg sublingual PRN PRN Chest 05/19/24 05/19/24 tablet Pain omega 2-fie-hmf-fish oil 1,000 mg 2 cap PO DAILY 05/19/24 05/19/24 (120 mg-180 mg) capsule (Fish Oil) spironolactone 25 mg tablet 25 mg PO DAILY 05/19/24 05/19/24 Previous Rx's Medication Instructions Recorded acetaminophen 325 mg tablet 650 mg (2 x 325 mg) PO Q6H PRN 04/12/24 Fever/Mild Pain (1-3) #120 tabs aspirin 81 mg tablet,delayed 81 mg PO BID #90 tabs 04/12/24 release ibuprofen 400 mg tablet 400 mg PO Q4H PRN Pain, Mild (1-3) 04/12/24 #100 tabs Allergies Allergy/AdvReac Type Severity Reaction Status Date / Time methocarbamol [From Robaxin] AdvReac Mild Hallucinati Verified 04/08/24 09:14 ng Patient History <Debbie Pederson DO - Last Filed: 05/21/24 03:34> Medical History (Updated 05/20/24 @ 22:39 by Sher Kulkarni MD) History of COVID-19 (2019) BCC (basal cell carcinoma) Pre-diabetes HLD (hyperlipidemia) Neoplasm of uncertain behavior of right kidney BPH w urinary obs/LUTS Incomplete emptying of bladder Prostate cancer (~2019) Abnormal prostate biopsy Nodular prostate Surgical History Hx of LASIK History of surgery History of back surgery (~1979) H/O circumcision Social History household members: spouse Smoking Status: Never smoker alcohol intake: current Smoking Status: Never smoker Exam <DO Terrie Rosas Last Filed: 05/21/24 03:34> Initial Vital Signs Initial Vital Signs: Vital Signs Temperature 98.2 F 05/19/24 17:00 Pulse Rate 83 05/19/24 17:00 Respiratory Rate 18 05/19/24 17:00 Blood Pressure 125/77 05/19/24 17:00 Pulse Oximetry 98 05/19/24 17:00 Oxygen Delivery Method Room Air 05/19/24 17:00 GENERAL: Alert pleasant 84-year-old male lying down in no acute distress and in no acute distress. HEENT: Head atraumatic,EOMI, pupils reactive, face symmetric, moist mucous membranes CARDIOVASCULAR: Regular rate and rhythm without murmurs, rubs or gallops. RESPIRATORY: Breath sounds equal bilaterally, no wheezes rales or rhonchi. ABDOMEN: Soft, nontender. Normoactive bowel sounds all 4 quadrants. No guarding or rebound. Negative Temple's sign no right upper quadrant pain no epigastric pain EXTREMITIES: Normal range of motion, no clubbing or edema. Neurovascularly intact BACK: Lower lumbar pain tender to touch NEUROLOGICAL: Alert and oriented x4. No gross deficits SKIN: Warm, dry, no laceration, no petechiae, no rashes or lesions. <Sher Kulkarni MD - Last Filed: 05/20/24 21:19> Initial Vital Signs Initial Vital Signs: Vital Signs Temperature 98.2 F 05/19/24 17:00 Pulse Rate 83 05/19/24 17:00 Respiratory Rate 18 05/19/24 17:00 Blood Pressure 125/77 05/19/24 17:00 Pulse Oximetry 98 05/19/24 17:00 Oxygen Delivery Method Room Air 05/19/24 17:00 Course <Debbie Pederson DO - Last Filed: 05/21/24 03:34> Orders Ordered: Discontinued Medications Acetaminophen (Acetaminophen 325 Mg Tablet) 650 mg PO Q6H PRN PRN Reason: Pain, Mild (1-3) Last Admin: 05/20/24 12:08 Dose: 650 mg Documented By: MINNIE Aspirin (Aspirin Ec 81 Mg Tablet) 81 mg PO DAILY [facility] Last Admin: 05/20/24 12:08 Dose: 81 mg Documented By: MINNIE Atorvastatin Calcium (Atorvastatin 20 Mg Tablet) 40 mg PO BEDTIME [facility] Clopidogrel Bisulfate (Clopidogrel 75 Mg Tablet) 75 mg PO DAILY [facility] Last Admin: 05/20/24 13:17 Dose: 75 mg Documented By: MINNIE Dabigatran (Dabigatran 75 Mg Capsule) 150 mg PO DAILY [facility] Last Admin: 05/20/24 12:08 Dose: 150 mg Documented By: MINNIE Finasteride (Finasteride 5 Mg Tablet) 5 mg PO BEDTIME [facility] Fish Oil (Fish Oil 1,000 Mg Capsule) 1,000 mg PO DAILY [facility] Gabapentin (Gabapentin 100 Mg Capsule) 200 mg PO NOW ONE Stop: 05/19/24 20:35 Last Admin: 05/19/24 20:50 Dose: 200 mg Documented By: Hydromorphone HCl (Hydromorphone 1 Mg Inj) 1 mg IM NOW ONE Stop: 05/19/24 18:52 Last Admin: 05/19/24 18:54 Dose: 1 mg Documented By: TC Hydromorphone HCl (Hydromorphone 1 Mg Inj) 1 mg IV Q2HR PRN PRN Reason: Pain, Moderate (4-6) Last Admin: 05/20/24 19:42 Dose: 1 mg Documented By: Admin: 05/20/24 10:40 Dose: 1 mg Documented By: JODI Isosorbide Mononitrate (Isosorbide Mononitrate Er 30 Mg Tablet) 30 mg PO DAILY [facility] Last Admin: 05/20/24 12:09 Dose: 30 mg Documented By: MINNIE Levothyroxine Sodium (Levothyroxine 25 Mcg Tablet) 25 mcg PO DAILY@0600 [facility] Metoprolol Succinate (Metoprolol Er 25 Mg Tablet) 25 mg PO NOW ONE Stop: 05/19/24 20:34 Last Admin: 05/19/24 20:49 Dose: 25 mg Documented By: Metoprolol Tartrate (Metoprolol Ir 25 Mg Tablet) 25 mg PO BID [facility] Last Admin: 05/20/24 12:09 Dose: 25 mg Documented By: MINNIE Naloxone HCl (Naloxone 0.4 Mg/Ml Vial) 0.2 mg IV Q2MIN PRN PRN Reason: Opiate Reversal Spironolactone (Spironolactone 25 Mg Tablet) 25 mg PO DAILY [facility] Last Admin: 05/20/24 12:09 Dose: 25 mg Documented By: MINNIE Tamsulosin HCl (Tamsulosin 0.4 Mg Capsule) 0.4 mg PO BEDTIME [facility] Vital Signs Vital signs: Vital Signs - 8 hr 05/20/24 20:00 05/20/24 20:00 Pulse Rate 65 Respiratory Rate 22 Blood Pressure 103/65 Pulse Oximetry 96 <Sher Kulkarni MD - Last Filed: 05/20/24 21:19> Orders Ordered: Discontinued Medications Acetaminophen (Acetaminophen 325 Mg Tablet) 650 mg PO Q6H PRN PRN Reason: Pain, Mild (1-3) Last Admin: 05/20/24 12:08 Dose: 650 mg Documented By: MINNIE Aspirin (Aspirin Ec 81 Mg Tablet) 81 mg PO DAILY [facility] Last Admin: 05/20/24 12:08 Dose: 81 mg Documented By: KB Atorvastatin Calcium (Atorvastatin 20 Mg Tablet) 40 mg PO BEDTIME [facility] Clopidogrel Bisulfate (Clopidogrel 75 Mg Tablet) 75 mg PO DAILY [facility] Last Admin: 05/20/24 13:17 Dose: 75 mg Documented By: MINNIE Dabigatran (Dabigatran 75 Mg Capsule) 150 mg PO DAILY [facility] Last Admin: 05/20/24 12:08 Dose: 150 mg Documented By: KB Finasteride (Finasteride 5 Mg Tablet) 5 mg PO BEDTIME [facility] Fish Oil (Fish Oil 1,000 Mg Capsule) 1,000 mg PO DAILY [facility] Gabapentin (Gabapentin 100 Mg Capsule) 200 mg PO NOW ONE Stop: 05/19/24 20:35 Last Admin: 05/19/24 20:50 Dose: 200 mg Documented By: Hydromorphone HCl (Hydromorphone 1 Mg Inj) 1 mg IM NOW ONE Stop: 05/19/24 18:52 Last Admin: 05/19/24 18:54 Dose: 1 mg Documented By: TC Hydromorphone HCl (Hydromorphone 1 Mg Inj) 1 mg IV Q2HR PRN PRN Reason: Pain, Moderate (4-6) Last Admin: 05/20/24 19:42 Dose: 1 mg Documented By: Admin: 05/20/24 10:40 Dose: 1 mg Documented By: JODI Isosorbide Mononitrate (Isosorbide Mononitrate Er 30 Mg Tablet) 30 mg PO DAILY [facility] Last Admin: 05/20/24 12:09 Dose: 30 mg Documented By: MINNIE Levothyroxine Sodium (Levothyroxine 25 Mcg Tablet) 25 mcg PO DAILY@0600 [facility] Metoprolol Succinate (Metoprolol Er 25 Mg Tablet) 25 mg PO NOW ONE Stop: 05/19/24 20:34 Last Admin: 05/19/24 20:49 Dose: 25 mg Documented By: Metoprolol Tartrate (Metoprolol Ir 25 Mg Tablet) 25 mg PO BID [facility] Last Admin: 05/20/24 12:09 Dose: 25 mg Documented By: MINNIE Naloxone HCl (Naloxone 0.4 Mg/Ml Vial) 0.2 mg IV Q2MIN PRN PRN Reason: Opiate Reversal Spironolactone (Spironolactone 25 Mg Tablet) 25 mg PO DAILY [facility] Last Admin: 05/20/24 12:09 Dose: 25 mg Documented By: MINNIE Tamsulosin HCl (Tamsulosin 0.4 Mg Capsule) 0.4 mg PO BEDTIME [facility] Vital Signs Vital signs: Vital Signs - 8 hr 05/20/24 20:00 05/20/24 20:00 Pulse Rate 65 Respiratory Rate 22 Blood Pressure 103/65 Pulse Oximetry 96 MDM - Back Pain/Injury <Debbie Pederson, DO - Last Filed: 05/21/24 03:34> Lab Data 05/19/24 17:10 05/19/24 17:10 Labs: Lab Results 05/19/24 05/19/24 05/19/24 Range/Units 17:10 17:55 19:27 WBC 7.6 (4.5-11.0) X10^3/uL RBC 3.28 L (4.5-5.9) X10^6/uL Hgb 10.0 L (13.5-17.5) g/dL Hct 29.9 L (41-53) % MCV 91.2 (80-100) fL MCH 30.6 (26-34) PG MCHC 33.5 (30-36) % RDW 15.9 H (11.6-14.8) % Plt Count 435 H (150-400) X10^3/uL Neut % (Auto) 80.8 H (50-75) % Lymph % (Auto) 7.5 L (25-40) % [place] % (Auto) 8.4 (3-14) % Eos % (Auto) 2.5 (2-4) % Baso % (Auto) 0.8 (0-2) % Neut # (Auto) 6100 (2185-7723) /uL Lymph # (Auto) 600 L (0918-6397) /uL [place] # (Auto) 600 (0-900) /uL Eos # (Auto) 200 (0-450) /uL Baso # (Auto) 100 (0-100) /uL Sodium 133 L (137-145) mmol/L Potassium 4.8 (3.4-5.1) mmol/L Chloride 100 (98-107) mmol/L Carbon Dioxide 24 (22-32) mmol/L BUN 24 H (9-20) mg/dL Creatinine 1.06 (0.66-1.25) mg/dL Estimated GFR > 60 (>60) mL/min BUN/Creatinine Ratio 22.6 H (6-22) Glucose 133 H (80-110) mg/dL Lactate 1.5 (0.7-2.1) mmol/L Calcium 10.1 (8.4-10.2) mg/dL Total Bilirubin 2.3 H (0.2-1.3) mg/dL AST 114 H (17-59) IU/L ALT 263 H (<50) IU/L Alkaline Phosphatase 495 H (38-126) U/L Ammonia < 9 L (9-30) umol/L Total Creatine Kinase 64 (55-170) U/L Troponin I < 0.012 < 0.012 (0.01-0.034) ng/mL Total Protein 7.5 (6.3-8.2) g/dL Albumin 3.8 (3.5-5.0) g/dL Globulin 3.7 (1.7-4.1) g/dL Albumin/Globulin Ratio 1.0 (1.0-2.8) Lipase 171 (23-300) U/L Urine Color Urine Appearance Urine pH (4.5-8.0) Ur Specific [place] (1.000-1.035) Urine Protein (Negative) Urine Glucose (UA) (Negative) g/dL Urine Ketones (NEGATIVE) Urine Occult Blood (Negative) Urine Nitrate (Negative) Urine Bilirubin (NEGATIVE) Ur Bilirubin Confirm (Negative) Urine Urobilinogen (0.2) E.U./dL Ur Leukocyte Esterase (NEGATIVE) 05/19/24 Range/Units 20:58 WBC (4.5-11.0) X10^3/uL RBC (4.5-5.9) X10^6/uL Hgb (13.5-17.5) g/dL Hct (41-53) % MCV (80-100) fL MCH (26-34) PG MCHC (30-36) % RDW (11.6-14.8) % Plt Count (150-400) X10^3/uL Neut % (Auto) (50-75) % Lymph % (Auto) (25-40) % [place] % (Auto) (3-14) % Eos % (Auto) (2-4) % Baso % (Auto) (0-2) % Neut # (Auto) (3772-8127) /uL Lymph # (Auto) (3697-6631) /uL [place] # (Auto) (0-900) /uL Eos # (Auto) (0-450) /uL Baso # (Auto) (0-100) /uL Sodium (137-145) mmol/L Potassium (3.4-5.1) mmol/L Chloride (98-107) mmol/L Carbon Dioxide (22-32) mmol/L BUN (9-20) mg/dL Creatinine (0.66-1.25) mg/dL Estimated GFR (>60) mL/min BUN/Creatinine Ratio (6-22) Glucose (80-110) mg/dL Lactate (0.7-2.1) mmol/L Calcium (8.4-10.2) mg/dL Total Bilirubin (0.2-1.3) mg/dL AST (17-59) IU/L ALT (<50) IU/L Alkaline Phosphatase (38-126) U/L Ammonia (9-30) umol/L Total Creatine Kinase (55-170) U/L Troponin I (0.01-0.034) ng/mL Total Protein (6.3-8.2) g/dL Albumin (3.5-5.0) g/dL Globulin (1.7-4.1) g/dL Albumin/Globulin Ratio (1.0-2.8) Lipase (23-300) U/L Urine Color Yellow Urine Appearance Clear Urine pH 5.5 (4.5-8.0) Ur Specific [place] >=1.030 H (1.000-1.035) Urine Protein Negative (Negative) Urine Glucose (UA) Negative (Negative) g/dL Urine Ketones Negative (NEGATIVE) Urine Occult Blood Negative (Negative) Urine Nitrate Negative (Negative) Urine Bilirubin 1+ H (NEGATIVE) Ur Bilirubin Confirm Negative (Negative) Urine Urobilinogen 0.2 (0.2) E.U./dL Ur Leukocyte Esterase Negative (NEGATIVE) ECG Data Attestation: I personally reviewed and interpreted this ECG as follows: Prior ECG tracings: available for review Interpretation: Sinus rhythm rate 80 MN interval 154 QRS 128 QTC 440 right bundle-branch block noted no acute ischemia similar previous EKGs MDM Narrative Medical decision making narrative: MDM CC: Back pain Complicating co-morbidities: CAD status post stenting hyperlipidemia, pancreatic cancer history of DVT on Pradaxa. Data collected from: at bedside. Reports that patient does have elevated liver enzymes he was told to stop taking his statin Medical records reviewed: [facility] records from May 06 reviewed patient was admitted to [facility] for NSTEMI was transferred to [facility] for complex PCI on 04/21/2024 where he was found to have severe RCA disease treated with rotational atherectomy andXience ZHANG x2, patient is being evaluated for potential CABG. Was admitted to [facility] on the 27/10 with chest pain. He had an echocardiogram which did not show any new abnormalities it was recommended starting Ranexa and monitoring. During that admission he was found to have LFTs that were elevated without abdominal pain. 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 Was evaluated by GI as well during admission He was also complaining of chronic low back pain MRI lumbar spine with with contrast did show moderate to severe foraminal narrowing this was on May 14. He was given low-dose Dilaudid no Tylenol due to elevated LFTs. He has home health PT OT discharge he would evaluation with PT. He did have some mild ZORAIDA baseline creatinine 1.0 it was 1.25 on discharge from [facility] on 04/26/2024 Differential considered: Cauda equina abscess, cholelithiasis cholecystitis acute coronary syndrome Exam documented above, pertinent findings include: 84-year-old male continues to have lower lumbar pain difficult time raising legs sensation intact abdomen soft nontender no epigastric or right upper quadrant pain Lab Test results independently reviewed as above. Pertinent findings: Elevated LFT and bilirubin bilirubin 2.3, AST 114 ALT 263 alk-phos 495, down from earlier lab bili 6.9 AST 173 ALT 382 Lipase 171 Troponin negative Creatinine 1.0 No leukocytosis stable anemia Troponin negative x2 Independently reviewed EKG as above no ischemia Imaging studies independently reviewed: none Consultations: [ ] Treatments: Gabapentin Dilaudid Re-evaluations: [ ] Discussion: Patient 84-year-old male presenting today with acute on chronic back pain. He recently had MRI week ago which did show severe narrowing. He was no cauda equina symptoms at this time. I do not see need for further imaging. Blood work today is overall reassuring it was compared to blood work 05/14/2024 at [facility]. He is improvement of his liver enzymes and bilirubin but they still remain elevated. He had a full workup of this he has no abdominal pain. He did have an episode of chest pain here in the ED repeat troponin is also negative he has no EKGs changes. At this time discussion with patient and about goals. He was needing pain control for his back unable to get up and move secondary to pain talked about placed it rehab facility which he was open to. At this time does not meet admission criteria. Wait for PT/OT SCIENTIFIC TECHNICAL WRITER in am Signed out to Dr. Kulkarni <Sher Kulkarni MD - Last Filed: 05/20/24 21:19> Lab Data Labs: Lab Results 05/19/24 05/19/24 05/19/24 Range/Units 17:10 17:55 19:27 WBC 7.6 (4.5-11.0) X10^3/uL RBC 3.28 L (4.5-5.9) X10^6/uL Hgb 10.0 L (13.5-17.5) g/dL Hct 29.9 L (41-53) % MCV 91.2 (80-100) fL MCH 30.6 (26-34) PG MCHC 33.5 (30-36) % RDW 15.9 H (11.6-14.8) % Plt Count 435 H (150-400) X10^3/uL Neut % (Auto) 80.8 H (50-75) % Lymph % (Auto) 7.5 L (25-40) % [place] % (Auto) 8.4 (3-14) % Eos % (Auto) 2.5 (2-4) % Baso % (Auto) 0.8 (0-2) % Neut # (Auto) 6100 (0598-1660) /uL Lymph # (Auto) 600 L (6485-3053) /uL [place] # (Auto) 600 (0-900) /uL Eos # (Auto) 200 (0-450) /uL Baso # (Auto) 100 (0-100) /uL Sodium 133 L (137-145) mmol/L Potassium 4.8 (3.4-5.1) mmol/L Chloride 100 (98-107) mmol/L Carbon Dioxide 24 (22-32) mmol/L BUN 24 H (9-20) mg/dL Creatinine 1.06 (0.66-1.25) mg/dL Estimated GFR > 60 (>60) mL/min BUN/Creatinine Ratio 22.6 H (6-22) Glucose 133 H (80-110) mg/dL Lactate 1.5 (0.7-2.1) mmol/L Calcium 10.1 (8.4-10.2) mg/dL Total Bilirubin 2.3 H (0.2-1.3) mg/dL AST 114 H (17-59) IU/L ALT 263 H (<50) IU/L Alkaline Phosphatase 495 H (38-126) U/L Ammonia < 9 L (9-30) umol/L Total Creatine Kinase 64 (55-170) U/L Troponin I < 0.012 < 0.012 (0.01-0.034) ng/mL Total Protein 7.5 (6.3-8.2) g/dL Albumin 3.8 (3.5-5.0) g/dL Globulin 3.7 (1.7-4.1) g/dL Albumin/Globulin Ratio 1.0 (1.0-2.8) Lipase 171 (23-300) U/L Urine Color Urine Appearance Urine pH (4.5-8.0) Ur Specific [place] (1.000-1.035) Urine Protein (Negative) Urine Glucose (UA) (Negative) g/dL Urine Ketones (NEGATIVE) Urine Occult Blood (Negative) Urine Nitrate (Negative) Urine Bilirubin (NEGATIVE) Ur Bilirubin Confirm (Negative) Urine Urobilinogen (0.2) E.U./dL Ur Leukocyte Esterase (NEGATIVE) 05/19/24 Range/Units 20:58 WBC (4.5-11.0) X10^3/uL RBC (4.5-5.9) X10^6/uL Hgb (13.5-17.5) g/dL Hct (41-53) % MCV (80-100) fL MCH (26-34) PG MCHC (30-36) % RDW (11.6-14.8) % Plt Count (150-400) X10^3/uL Neut % (Auto) (50-75) % Lymph % (Auto) (25-40) % [place] % (Auto) (3-14) % Eos % (Auto) (2-4) % Baso % (Auto) (0-2) % Neut # (Auto) (7925-1174) /uL Lymph # (Auto) (6496-6097) /uL [place] # (Auto) (0-900) /uL Eos # (Auto) (0-450) /uL Baso # (Auto) (0-100) /uL Sodium (137-145) mmol/L Potassium (3.4-5.1) mmol/L Chloride (98-107) mmol/L Carbon Dioxide (22-32) mmol/L BUN (9-20) mg/dL Creatinine (0.66-1.25) mg/dL Estimated GFR (>60) mL/min BUN/Creatinine Ratio (6-22) Glucose (80-110) mg/dL Lactate (0.7-2.1) mmol/L Calcium (8.4-10.2) mg/dL Total Bilirubin (0.2-1.3) mg/dL AST (17-59) IU/L ALT (<50) IU/L Alkaline Phosphatase (38-126) U/L Ammonia (9-30) umol/L Total Creatine Kinase (55-170) U/L Troponin I (0.01-0.034) ng/mL Total Protein (6.3-8.2) g/dL Albumin (3.5-5.0) g/dL Globulin (1.7-4.1) g/dL Albumin/Globulin Ratio (1.0-2.8) Lipase (23-300) U/L Urine Color Yellow Urine Appearance Clear Urine pH 5.5 (4.5-8.0) Ur Specific [place] >=1.030 H (1.000-1.035) Urine Protein Negative (Negative) Urine Glucose (UA) Negative (Negative) g/dL Urine Ketones Negative (NEGATIVE) Urine Occult Blood Negative (Negative) Urine Nitrate Negative (Negative) Urine Bilirubin 1+ H (NEGATIVE) Ur Bilirubin Confirm Negative (Negative) Urine Urobilinogen 0.2 (0.2) E.U./dL Ur Leukocyte Esterase Negative (NEGATIVE) MDM Narrative Medical decision making narrative: MDM CC: Back pain Complicating co-morbidities: CAD status post stenting hyperlipidemia, pancreatic cancer history of DVT on Pradaxa. Data collected from: at bedside. Reports that patient does have elevated liver enzymes he was told to stop taking his statin Medical records reviewed: [facility] records from May 06 reviewed patient was admitted to [facility] for NSTEMI was transferred to [facility] for complex PCI on 04/21/2024 where he was found to have severe RCA disease treated with rotational atherectomy andXience ZHANG x2, patient is being evaluated for potential CABG. Was admitted to [facility] on the 27/10 with chest pain. He had an echocardiogram which did not show any new abnormalities it was recommended starting Ranexa and monitoring. During that admission he was found to have LFTs that were elevated without abdominal pain. 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 Was evaluated by GI as well during admission He was also complaining of chronic low back pain MRI lumbar spine with with contrast did show moderate to severe foraminal narrowing this was on May 14. He was given low-dose Dilaudid no Tylenol due to elevated LFTs. He has home health PT OT discharge he would evaluation with PT. He did have some mild ZORAIDA baseline creatinine 1.0 it was 1.25 on discharge from [facility] on 04/26/2024 Differential considered: Cauda equina abscess, cholelithiasis cholecystitis acute coronary syndrome Exam documented above, pertinent findings include: 84-year-old male continues to have lower lumbar pain difficult time raising legs sensation intact abdomen soft nontender no epigastric or right upper quadrant pain Lab Test results independently reviewed as above. Pertinent findings: Elevated LFT and bilirubin bilirubin 2.3, AST 114 ALT 263 alk-phos 495, down from earlier lab bili 6.9 AST 173 ALT 382 Lipase 171 Troponin negative Creatinine 1.0 No leukocytosis stable anemia Troponin negative x2 Independently reviewed EKG as above no ischemia Imaging studies independently reviewed: none Consultations: [ ] Treatments: Gabapentin Dilaudid Re-evaluations: [ ] Discussion: Patient 84-year-old male presenting today with acute on chronic back pain. He recently had MRI week ago which did show severe narrowing. He was no cauda equina symptoms at this time. I do not see need for further imaging. Blood work today is overall reassuring it was compared to blood work 05/14/2024 at [facility]. He is improvement of his liver enzymes and bilirubin but they still remain elevated. He had a full workup of this he has no abdominal pain. He did have an episode of chest pain here in the ED repeat troponin is also negative he has no EKGs changes. At this time discussion with patient and about goals. He was needing pain control for his back unable to get up and move secondary to pain talked about placed it rehab facility which he was open to. At this time does not meet admission criteria. Wait for PT/OT SCIENTIFIC TECHNICAL WRITER in am Signed out to Dr. Kulkarni 05/20/24, 0700, Shad. Sign-out from Dr. Pederson. 84-year-old male with acute on chronic back pain. Recent evaluations at multiple healthcare facilities. History of coronary artery disease, evaluated April 2024 [facility], had coronary stenting x2. More recently seen [facility] with chest pain, noted to have increased LFTs, admitted, had MRCP study, MR lumbar spine, Cardiology consult, discharged on 4 days ago, increasing low back pain since. Patient apparently had been switched from oxycodone/APAP to oral Dilaudid to avoid Tylenol given LFT elevation of unclear cause. Last night patient was given oral gabapentin to help address his pain. Patient states that he can not walk due to the back pain. PT/OT/SCIENTIFIC TECHNICAL WRITER consult requested. Assumed interim care. OT consult, patient performed badly with ability to ambulate. Apparently does not want longterm placement. Unclear disposition plan. Try to obtain records MRI studies [facility]. MRI 05/14/2024, [facility], [place]. Faxed report. Impressions: ?There is underlying multilevel facet arthropathy. Canal stenosis is mild at L2-L3, moderate below L3-L4, severe at L4-L5, and moderate at L5-S1. There is moderate to severe right foraminal narrowing at L5-S1.? See printed radiology report. MRI report relayed to patient, who feels like he is having too much pain to ambulate, we will pursue neurosurgical consultation. He does not want to go back to [facility]. He prefers to have consultation through [facility], we will query their facility for possible neurosurgical consultation and transfer. [facility] patient, await callback from [facility] system. 151, discussed with [facility] intake provider Dr Leonard in [place], reviewed chart, we will call back for authorization transfer. 170, [employer] reports transfer has been authorized by [facility], awaiting call back from requested [facility] facility. 175, case discussed with neurosurgery [place], he can consult, requests transfer to medicine service [place]. Await call back. 183, case discussed with hospitalist Katy Lee, accepts for patient transfer to floor bed. Await bed availability. transfer to [facility] by ground EMS Discharge Plan Departure Patient Disposition: [facility] Clinical Impression: Acute exacerbation of chronic low back pain Prescriptions: No Action isosorbide mononitrate 30 mg tablet extended release 24 hr 30 mg PO DAILY clopidogrel 75 mg tablet 75 mg DAILY spironolactone 25 mg tablet 25 mg PO DAILY levothyroxine 25 mcg tablet 25 mcg PO QAM hydromorphone 2 mg tablet 1 mg PO Q6H PRN (Reason: severe pain) nitroglycerin 0.4 mg tablet, sublingual 0.4 mg sublingual PRN PRN (Reason: Chest Pain) glucosamine sulfate [Glucosamine] 750 mg Tablet 1,500 mg PO DAILY Rx Instructions: administer with a meal metoprolol tartrate 25 mg tablet 25 mg PO BID omega 1-skb-oqo-fish oil [Fish Oil] 1,000 (120-180) mg Capsule 2 cap PO DAILY dabigatran etexilate 150 mg capsule 150 mg PO DAILY Patient Comments: [NO ORIGINAL SIG] atorvastatin 40 mg Tablet 40 mg PO BEDTIME tamsulosin 0.4 mg Capsule 0.8 mg PO BEDTIME Aleve PM 220-25 mg Tablet 1 tab PO BEDTIME finasteride 5 mg tablet 5 mg PO BEDTIME aspirin 81 mg Tablet,Delayed Release (Dr/Ec) 81 mg PO BID Qty: 90 0RF acetaminophen 325 mg Tablet 650 mg PO Q6H PRN (Reason: Fever/Mild Pain (1-3)) Qty: 120 0RF ibuprofen 400 mg Tablet 400 mg PO Q4H PRN (Reason: Pain, Mild (1-3)) Qty: 100 0RF omega-3 fatty acids [Fish Oil Concentrate] 1,000 mg capsule 1,000 mg PO DAILY Referrals: Shirley Mitchell MD [Primary Care Provider] -
[2024-05-19 18:17] LABS: Lactate (Lactic Acid) 1.5 mmol/L (0.7-2.1); Lipase 171 U/L (23-300)
[2024-05-19 18:19] LABS: Ammonia (NH3) < 9 umol/L (9-30)
[2024-05-19] MEDS: HYDROMORPHONE 1 MG INJ IM (18:54)
[2024-05-19 18:57] LABS: Creatine Kinase 64 U/L (55-170)
[2024-05-19 19:10] LABS: Troponin I < 0.012 ng/mL (0.01-0.034)
[2024-05-19 19:57] LABS: Troponin I < 0.012 ng/mL (0.01-0.034)
[2024-05-19] MEDS: METOPROLOL ER 25 MG TABLET PO (20:49)
[2024-05-19] MEDS: GABAPENTIN 100 MG CAPSULE 200 MG PO (20:50)
[2024-05-19 21:03] LABS: Appearance Urine UA CLEAR; Bilirubin Urine UA 1+ (NEGATIVE); Color Urine UA YELLOW; Glucose Urine UA NEGATIVE (Negative); Ketones Urine UA NEGATIVE (NEGATIVE); Leukocyte Esterase Urine UA NEGATIVE (NEGATIVE); Nitrite Urine UA NEGATIVE (Negative); Occult Blood Urine UA NEGATIVE (Negative); Protein Urine UA NEGATIVE (Negative); Specific Gravity Urine UA >=1.030 (1.000-1.035); Urobilinogen Urine UA 0.2 E.U./dL (0.2); pH Urine UA 5.5 (4.5-8.0)
[2024-05-19 21:23] LABS: Ictotest Urine Negative (Negative)
--- NOTE | 2024-05-19 21:32 | PC.NURSE ---
PILLOW AGENT NOTE: Patient prefers to stay on the fco and not transfer to a bed for comfort reasons.
--- NOTE | 2024-05-19 21:32 | PC.NURSE ---
Pt repositioned. All extra linen removed from underneath pt. Perineal care done and depends placed on pt. Pt continues to refuse hospital bed. Pt states hospital bed is too soft and he would prefer the firmer ED stretcher.
[2024-05-20] VITALS (42 sets, daily range): BP systolic 92–142; BP diastolic 59–86; PULSE 49–85; RESP 9–24; O2SAT 94–99
--- NOTE | 2024-05-20 10:15 | OT.IP.EVAL ---
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 Mobility and Gait Pt was IND in all mobility prior to ~2 weeks ago. He had an anterior lateral R MONTY on and used a walker after the surgery but was back to ambulating without AD since. Activities of Daily Living and IADL's Pt was IND in all ADLs and IADLs prior to ~2 weeks ago. Social History Household Members spouse Living Arrangements House Number of Floors (Floors) Two Floors Number of Stairs To Enter/Railing? 2 steps without railing to enter the main level Home Environment Standard Height Toilet,Walk in Shower,Built-In Shower Seat Home Equipment Front Wheel Walker,Straight Cane,Bedside Commode,Raised Toilet Seat w/Armrests,Hand Held Shower,Grab Bars In Shower Employment Status Retired Additional Social History Comment Pt lives with his Marah Campbell OT-IP Current Condition Start: 05/20/24 10:35 Freq: Status: Active Protocol: Document 05/20/24 10:36 CGR (Rec: 05/20/24 11:23 CGR [id number]) Occupational Therapy Current Condition Current Condition Evaluation Date 05/20/24 Treatment Diagnosis Back pain Diagnosis Onset Date 05/19/24 M3 OT- IP Subjective and Pain Start: 05/20/24 10:35 Freq: Status: Active Protocol: Document 05/20/24 10:36 CGR (Rec: 05/20/24 11:23 CGR [id number]) OT- Subjective Occupational Therapy Visit Type Type Initial Evaluation Visit Start Time 09:54 Visit Stop Time 10:15 Notes Pt's present throughout session. OT Pain Assessment Pain When Pain Assessed At Rest Pain Present Pain Present Denied Pain M4 OT- IP ADL's Start: 05/20/24 10:35 Freq: Status: Active Protocol: Document 05/20/24 10:36 CGR (Rec: 05/20/24 11:23 CGR [id number]) OT HOV-Meru-Eneufze Comments OT Self-Feeding Comments not meal time OT ADL-Grooming Comments OT Grooming Comments not performed, pt in ER and limited acess to items OT ADL-Oral Care Comments Oral Care Comments not performed, pt in ER and limited acess to items OT ADL-Dressing Comments OT Dressing Comments not performed OT ADL-Toileting Comments OT Toileting Comments not performed, nursing states that he has been using the breif because his pain is so high. OT ADL-Bathing Comments OT Bathing Comments not performed, pt in ER and limited acess to items M5 OT- IP IADL's Start: 05/20/24 10:35 Freq: Status: Active Protocol: Document 05/20/24 10:36 CGR (Rec: 05/20/24 11:23 CGR [id number]) OT-Instrumental Activities of Daily Living Deficits IADL Deficits Identified Deficits Home Safety Awareness Awareness of Need for Assistance at Home Good Awareness Ability to Problem Solve Emergency Able to Problem Solve Situations Medication Management Medication Management No Deficits Identified Money Management Money Management No Deficits Identified Meal Preparation Meal Preparation Caregiver Provides Assist Image Archivist Image Archivist Caregiver Provides Assist Driving Driving Comments 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 M6 OT- IP Functional Cognition Start: 05/20/24 10:35 Freq: Status: Active Protocol: Document 05/20/24 10:36 CGR (Rec: 05/20/24 11:23 CGR [id number]) Cognitive Factors Limiting Selfcare Function Cognitive Ability Level of Alertness Alert Patient Orientation Name,Age,Birthday,Month,Date, Year,Day of Week,Place, Situation Attention Span Ability Capable of Focused Attention, Capable of Sustained Attention Ability to Follow Commands Able to Follow Multi-Step Commands OT- Vision and Hearing OT- Hearing Assessment OT- Hearing Assessment WFL OT- Vision Assessment Visual Attentiveness WFL Occular Pursuits WFL Visual Convergence WFL Vision Assessment Comments Pt states no glasses. M7 OT- IP Mobility and Balance Start: 05/20/24 10:35 Freq: Status: Active Protocol: Document 05/20/24 10:36 CGR (Rec: 05/20/24 11:23 CGR [id number]) OT- Bed Mobility Assessment Rolling Type of Rolling Log Rolling Level of Assistance Total Assistance,1 Person Assistance OT-Transfer Assessment Comments Mobility Comments Attempted rolling, pt is unable to participate d/t pain . OT- Gait Assessment Comments Gait Ability Comments Unable to assess on this day. OT- Balance Assessment Comments Other Balance Tests/Deviations/Treatment Unable to assess : M8 OT- IP Objective Assessments Start: 05/20/24 10:35 Freq: Status: Active Protocol: Document 05/20/24 10:36 CGR (Rec: 05/20/24 11:23 CGR [id number]) OT Strength Upper Extremity Strength Assessment Within Functional Limits Comments Strength Comments grossly 4+/5 OT- Coordination Assessment Upper Extremity Finger to Nose Test Within Functional Limits Finger Tapping Test Within Functional Limits OT-Muscle Tone Assessment Muscle Tone WNL Yes OT Sensation Assessment Edema Edema Absent M9 OT- IP Assessment and Plan Start: 05/20/24 10:35 Freq: Status: Active Protocol: Document 05/20/24 10:36 CGR (Rec: 05/20/24 11:23 CGR [id number]) OT Summary Assessment and Plan Potential Rehabilitation Potential Good Analytic Complexity at Evaluation High Summary OT Impairments Pain,Strength,Balance, Functional Mobility,Grooming, Dressing,Toileting,Bathing, Toilet Transfers,Shower Transfers,Activity Tolerance Progress Towards Goals Slow Progress due to Pain Assessment Summary Pt presents as a high complexity evaluation s/p admit for back pain. Pt was unable to participate in any out of bed activity and was unable to roll onto his side d /t severe pain with movement. Pt was agreeable and followed all instructions but is not physically able to perform movement at this time d/t extreme pain with movement. Goals Self-Feeding Goal Independent Grooming Goal Independent Dressing Goal Independent Toileting Goal Independent Bathing Goal Independent Toilet Transfer Goal Independent Shower Transfer Goal Independent Days to Meet Goals 20 Frequency of Treatment Other frequency 5x per week Treatment Plan OT Treatment Plan ADL Training,Functional Mobility,Patient/Family Education,Discharge Planning Other Treatment Recommendations and Next ADLs in bed, mobility if able, Treatment Focus check new imaging as pt may not be appropriate for mobility without intervention given pain level. Discharge Recommendations OT Discharge Recommendations SNF Rehab Transportation Needs at Discharge Stretcher/Ambulance
--- NOTE | 2024-05-20 10:20 | PT-IP ANOTE ---
OT speaks with PT after OT checks on pt in ED. OT reports pt's back pain is so severe, he could not tolerate rolling. OT reports that OT and nsg agree that PT not appropriate today. Con't efforts next date.
[2024-05-20] MEDS: HYDROMORPHONE 1 MG INJ IV ×2 (10:40→19:42)
[2024-05-20] MEDS: ASPIRIN EC 81 MG TABLET PO (12:08)
[2024-05-20] MEDS: ACETAMINOPHEN 325 MG TABLET 650 MG PO (12:08)
[2024-05-20] MEDS: DABIGATRAN 75 MG CAPSULE 150 MG PO (12:08)
[2024-05-20] MEDS: METOPROLOL IR 25 MG TABLET PO (12:09)
[2024-05-20] MEDS: SPIRONOLACTONE 25 MG TABLET PO (12:09)
[2024-05-20] MEDS: ISOSORBIDE MONONITRATE ER 30 MG TABLET PO (12:09)
--- NOTE | 2024-05-20 12:51 | CM.DANOTE ---
Addendum entered by TERESA Recinos 05/20/24 19:24: DCP Updated: Per , pt is accepted at [facility] for neurosurgery service. ED PARADICHLOROBENZENE TENDER sent update to [facility]. SADE Charles Addendum entered by TERESA Recinos 05/20/24 17:07: DCP Updated: Per , neurosurgery consult placed with [place] Provider, pending recommendations. ED PARADICHLOROBENZENE TENDER re-entered room, pt states they have identified preferences for SNF Rehab if available: - [facility] PASRR initiated, in patient chart. SADE Charles Original Note: DCP Assessment Note: Pt is a 84yo male, resident of [place], is here in the ED for severe back pain. Pt lives in a house with his , Marah. Pt's Primary Care Provider is Dr. Shirley Mitchell MD and insurance is [facility]. Reviewed chart and discussed with multidisciplinary team pt's medical status and initial discharge needs. PARADICHLOROBENZENE TENDER consulted for identified possible SNF placement. It is identified that patient was admitted at [facility] for similar symptoms on 05/06/24-05/15/24. Patient also was admitted to [facility] on 04/11/24-04/12/2024 s/p R MONTY. Both admissions, he discharged home. Per [facility] records, pt was referred to [facility] for PT/OT/RN. PARADICHLOROBENZENE TENDER called [facility] and confirmed that patient was supposed to start care today, 05/20/24. Pt would need new signed orders if this is the plan at discharge. OT evaluation completed and they are recommending SNF Rehab. PT eval could not be completed on this date due to pt's uncontrolled pain. ED PARADICHLOROBENZENE TENDER met w/patient at bedside; introduced self and role. Present in the room is pt's . Patient was found in bed, alert and oriented, cooperative with assessment. Pt was endorsing sharp pain in his back. Pt confirmed living situation and good support in . Pt and awaiting to speak with ED Provider regarding next steps, hoping to not go to SNF Rehab but they understand it may be necessary. ED PARADICHLOROBENZENE TENDER reviewed Medicare Choice List with pt and , discussed their [place] insurance and the referral process; they verbalized understanding. No preference for SNFs identified at this time, would like to continue to review Medicare Choice list. Plan: Anticipating dc to SNF Rehab vs. Home with Home Health if able to manage pain. CM team will follow closely for coordination of discharge plans. SADE Charles Discharge Planning/Care Management CM Discharge Assessment Start: 05/20/24 12:47 Freq: Status: Active Protocol: Document 05/20/24 12:47 MW (Rec: 05/20/24 12:50 MW [id number]) Discharge Planning Assessment Assigned Records And Information Manager TERESA Guevara DPOA/Assigned Designee Name Marah, Spouse Contact Information [phone] Advance Directives? Yes Advance Directives on File No History Provided By Patient,Family Member,Medical Record Prior Living Arrangements House Comment D[facility] Ocampo Household Members spouse Type of transporation used prior to Drives own vehicle admit Independent with ADL's Yes Is patient alert and oriented? Yes Caregiver for Another No DME Already Rented / Owned Elevated Toilet Seat,FWW / Walker,Cane,Bedside Commode Patient/Family Preference Longterm Facility,Home with Home Health Barriers to Discharge No Discharge Plan Longterm Facility Transportation Arrangement Spouse vs. facility Referrals Initiated None needed If patient plan is SNF: Has PASSR been Yes completed? Medicare Choice List Provided Yes Medicare choice list reviewed on patient,family electronic tablet with Review Status In Process Please Provide Date Initial DC 05/20/24 Assessment Was Performed Next Review Type Continued Stay Review
[2024-05-20] MEDS: CLOPIDOGREL 75 MG TABLET PO (13:17)
--- NOTE | 2024-05-20 14:15 | PC.NURSE ---
Pt states that SCDs make them uncomfortable and makes him jolt causing their pain to flare up again. Pt and visitor refuse to use SCDs any further. Nurse and Doctor are aware.
--- NOTE | 2024-05-20 14:49 | PC.NURSE ---
This DIVING COACH called [facility] for a neurosurgery consult for this patient for their lower back pain. Pt is a [place] member, so this DIVING COACH was deferred to call the [place] line to get authorization from [place] before going ahead with calling consultation at [facility]. [facility] states they will call back with an authorization number.
--- NOTE | 2024-05-20 16:14 | PT-IP ANOTE ---
PT calls back to ED to check on pt. Pt con't with high pain and PT notes neurosurgery call pending and no notes in chart that PT is able to review. Con't PT efforts next date.
--- NOTE | 2024-05-20 19:35 | PC.NURSE ---
Attempted to call report to Katy # [phone]; RN is to call me back after fininshing care on a patient, could not give him report just yet.
== END 2024-05-20 20:15 | disposition short-term general hospital (02) ==
PROVIDERS: Emergency Medicine; Emergency Provider Emergency Medicine; PCP Student in an Organized Health Care Education/Training Program
DX: M54.50 Low back pain, unspecified (principal); G89.29 Other chronic pain; I45.10 Unspecified right bundle-branch block; E78.5 Hyperlipidemia, unspecified; C25.9 Malignant neoplasm of pancreas, unspecified; I25.10 Atherosclerotic heart disease of native coronary artery without angina pectoris; I25.2 Old myocardial infarction; M48.061 Spinal stenosis, lumbar region without neurogenic claudication; M47.816 Spondylosis without myelopathy or radiculopathy, lumbar region; M48.07 Spinal stenosis, lumbosacral region; Z95.5 Presence of coronary angioplasty implant and graft; Z86.718 Personal history of other venous thrombosis and embolism; Z79.01 Long term (current) use of anticoagulants
CPT/HCPCS: 36415; 80053; 81003; 82140; 82550; 83605; 83690; 84484; 85025; 93005; 96372; 96374; 97167; 97530; 99284; 99285; J1171

== ENCOUNTER 2024-06-07 19:25 | Emergency (ER) | payer OTHER, SELFPAY ==
[2024-04-11 11:14] VITALS: BMI 30.6
[2024-06-07] VITALS (14 sets, daily range): BP systolic 105–124; BP diastolic 51–72; PULSE 59–76; RESP 16; TEMP 36.6; O2SAT 91–98; BMI 29.8
--- NOTE | 2024-06-07 20:04 | DI.CT.S_ITS ---
PROCEDURE: CT PELVIS W CON INDICATIONS: hip pain, atraumatic,recent surgery TECHNIQUE: After the administration of intravenous contrast, 5 mm thick sections acquired from the iliac crests to the symphysis. 5 mm coronal and sagittal reformats were acquired. For radiation dose reduction, the following was used: automated exposure control, adjustment of mA and/or kV according to patient size. COMPARISON: None. FINDINGS: Image quality: Diagnostic. PELVIS: Peritoneum and Bowel: Bowel loops demonstrate normal wall thickness and caliber. No free fluid or air. Normal appendix. Diverticulosis of the visualized colon without evidence of acute diverticulitis. Pelvic Organs: No pelvic mass. Bladder: Normal wall thickness, accounting for underdistension. No perivesicular fat stranding. Urinary bladder diverticulum is noted final correlate for bladder outlet obstruction. Pelvic Nodes: No enlarged lymph nodes. Miscellaneous: Small bilateral fat containing inguinal hernias. Atherosclerotic vascular calcifications with mild prominence of the infrarenal abdominal aorta measuring up to 3.0 cm. Bones: No aggressive osseous abnormality. Right hip arthroplasty. Decreased osseous mineralization. Degenerative changes of the visualized spine. IMPRESSION: Right hip arthroplasty in place. No findings concerning for hardware complication. No surrounding fluid collections. Please see above for additional findings. Dictated by: Avery Parker M.D. on 06/07/2024 at 21:51 Approved by: Avery Parker M.D. on 06/07/2024 at 21:54
--- NOTE | 2024-06-07 20:05 | ED.EXTPRO ---
HPI - Extremity Problem General Chief complaint: Extremity Problem,Nontraumatic Stated complaint: hip pain Time Seen by Provider: 06/07/24 20:04 Source: EMS Mode of arrival: EMS History of Present Illness HPI Narrative: Patient is a male with a history of right hip replacement surgery in April who presents with acute onset of excruciating right hip pain, rated 10/10, upon waking from a nap this morning. The patient reports that his recovery had been going well without any incidents or worsening pain prior to this episode. He denies any falls or injuries. The pain, initially localized to the hip, has since radiated down to his ankle. He denies any fever or chills. The patient has not attempted to bear weight or move the leg significantly due to the severity of the pain. He also mentions a separate, long-standing back pain issue. Surgical History: Right hip replacement surgery in April. Related Data Home Medications Medication Instructions Recorded Confirmed omega-3 fatty acids 1,000 mg 1,000 mg PO DAILY 11/06/19 05/19/24 capsule (Fish Oil Concentrate) atorvastatin 40 mg tablet 40 mg PO BEDTIME 04/08/24 05/19/24 finasteride 5 mg tablet 5 mg PO BEDTIME 04/08/24 05/19/24 naproxen 220 mg-diphenhydramine 25 1 tab PO BEDTIME 04/08/24 05/19/24 mg tablet (Aleve PM) tamsulosin 0.4 mg capsule 0.8 mg PO BEDTIME 04/08/24 05/19/24 clopidogrel 75 mg tablet 75 mg DAILY 05/19/24 05/19/24 dabigatran etexilate 150 mg capsule 150 mg PO DAILY 05/19/24 05/19/24 glucosamine sulfate 750 mg tablet 1,500 mg PO DAILY 05/19/24 05/19/24 hydromorphone 2 mg tablet 1 mg PO Q6H PRN severe pain 05/19/24 05/19/24 isosorbide mononitrate 30 mg 30 mg PO DAILY 05/19/24 05/19/24 tablet,extended release 24 hr levothyroxine 25 mcg tablet 25 mcg PO QAM 05/19/24 05/19/24 metoprolol tartrate 25 mg tablet 25 mg PO BID 05/19/24 05/19/24 nitroglycerin 0.4 mg sublingual 0.4 mg sublingual PRN PRN Chest 05/19/24 05/19/24 tablet Pain omega 8-dvk-efs-fish oil 1,000 mg 2 cap PO DAILY 05/19/24 05/19/24 (120 mg-180 mg) capsule (Fish Oil) spironolactone 25 mg tablet 25 mg PO DAILY 05/19/24 05/19/24 Previous Rx's Medication Instructions Recorded acetaminophen 325 mg tablet 650 mg (2 x 325 mg) PO Q6H PRN 04/12/24 Fever/Mild Pain (1-3) #120 tabs aspirin 81 mg tablet,delayed 81 mg PO BID #90 tabs 04/12/24 release ibuprofen 400 mg tablet 400 mg PO Q4H PRN Pain, Mild (1-3) 04/12/24 #100 tabs Allergies Allergy/AdvReac Type Severity Reaction Status Date / Time methocarbamol [From Robaxin] AdvReac Mild Hallucinati Verified 04/08/24 09:14 ng Patient History Medical History (Updated 06/07/24 @ 23:27 by Rad Wheeler MD) History of COVID-19 (2019) BCC (basal cell carcinoma) Pre-diabetes HLD (hyperlipidemia) Neoplasm of uncertain behavior of right kidney BPH w urinary obs/LUTS Incomplete emptying of bladder Prostate cancer (~2019) Abnormal prostate biopsy Nodular prostate Surgical History Hx of LASIK History of surgery History of back surgery (~1979) H/O circumcision Social History household members: spouse Smoking Status: Never smoker alcohol intake: current Smoking Status: Never smoker Exam Narrative Exam Narrative: General: Well appearing, well nourished, in no distress. Skin: Good turgor, no rash, unusual bruising or prominent lesions. Head: Normocephalic, atraumatic. HEENT: Conjunctiva clear, EOM intact, PERRL, mucous membranes moist. Neck: Supple, normal ROM. Heart: Regular rate and rhythm, no murmur or gallop or rubs. Lungs: Clear to auscultation. No rales, rhonchi, or wheezes. Abdomen: Soft and nontender. Bowel sounds normal. No mass or hernia. Back: Spine normal without deformity or tenderness, no CVA tenderness. Extremities: No deformities, edema. Peripheral pulses intact. Right hip pain radiating to the ankle, no crepitus noted, good circulation in the extremity. pain in the hip with passive range of motion no significant pain to palpation in the area no overlying erythema Neurologic: CN 2-12 normal. Normal sensation and motor exam. Psychiatric: Oriented X3. Normal mood and affect. Initial Vital Signs Initial Vital Signs: Vital Signs Temperature 97.8 F 06/07/24 19:29 Pulse Rate 66 06/07/24 19:29 Respiratory Rate 16 06/07/24 19:29 Blood Pressure 105/63 06/07/24 19:29 Pulse Oximetry 91 06/07/24 19:29 Oxygen Delivery Method Room Air 06/07/24 19:29 Course Orders Ordered: ED Orders 06/07/24 20:04 CT pelvis w con Stat 06/07/24 20:15 CBC Auto Diff [Complete Blood Count AUTO DIFF] Stat CMP [Comprehensive Metabolic Panel] Stat CRP [C-Reactive Protein Quant] Stat ESR [Erythrocyte Sedimentation Rate] Stat Vital Signs Vital signs: Vital Signs - 8 hr 06/07/24 23:30 06/07/24 23:30 06/08/24 00:06 Temperature 97.8 F Pulse Rate 65 Blood Pressure 111/66 Pulse Oximetry 97 MDM - Extremity (Nontraumatic) Lab Data 06/07/24 20:15 06/07/24 20:15 Labs: Lab Results 06/07/24 Range/Units 20:15 WBC 6.0 (4.5-11.0) X10^3/uL RBC 3.14 L (4.5-5.9) X10^6/uL Hgb 9.4 L (13.5-17.5) g/dL Hct 27.6 L (41-53) % MCV 88.1 (80-100) fL MCH 30.1 (26-34) PG MCHC 34.2 (30-36) % RDW 15.3 H (11.6-14.8) % Plt Count 241 (150-400) X10^3/uL Neut % (Auto) 75.4 H (50-75) % Lymph % (Auto) 10.4 L (25-40) % [place] % (Auto) 9.2 (3-14) % Eos % (Auto) 4.2 H (2-4) % Baso % (Auto) 0.8 (0-2) % Neut # (Auto) 4500 (6069-9072) /uL Lymph # (Auto) 600 L (6114-6075) /uL [place] # (Auto) 500 (0-900) /uL Eos # (Auto) 200 (0-450) /uL Baso # (Auto) 0 (0-100) /uL ESR 71 H (0-15) MM/HR Sodium 137 (137-145) mmol/L Potassium 4.2 (3.4-5.1) mmol/L Chloride 105 (98-107) mmol/L Carbon Dioxide 23 (22-32) mmol/L BUN 27 H (9-20) mg/dL Creatinine 1.36 H (0.66-1.25) mg/dL Estimated GFR 52 L (>60) mL/min BUN/Creatinine Ratio 19.9 (6-22) Glucose 101 (80-110) mg/dL Calcium 9.4 (8.4-10.2) mg/dL Total Bilirubin 0.7 (0.2-1.3) mg/dL AST 27 (17-59) IU/L ALT 28 (<50) IU/L Alkaline Phosphatase 132 H (38-126) U/L C-Reactive Protein 4.2 H (<1.0) mg/dL Total Protein 6.4 (6.3-8.2) g/dL Albumin 3.5 (3.5-5.0) g/dL Globulin 2.9 (1.7-4.1) g/dL Albumin/Globulin Ratio 1.2 (1.0-2.8) MDM Narrative Medical decision making narrative: 84-year-old male with recent right hip surgery presenting with atraumatic onset of right hip pain difficulty with ambulating and moving the right hip. Denies fevers or chills INITIAL EVALUATION AND PLAN: - Further evaluation and imaging of the right hip to assess for potential complications related to the hip replacement surgery. - Monitor pain levels and response to analgesics. - Assess for any signs of infection or other complications. - Differential diagnosis includes but is not limited to: infection, prosthesis-related complications, fracture, dislocation, and referred pain from the spine. - patient found to have mildly elevated inflammatory markers with elevated CRP, ESR, no significant leukocytosis. On physical exam patient has no significant erythema over the wound site well-appearing surgical wound without signs of significant erythema or abnormality. Case discussed with on-call orthopedic doctor who reviewed case lab work and does not recommend admission or aspiration of hip joint at this time. Recommends conservative management return precautions and will have patient follow up with orthopedic clinic. - On re-evaluation patient was able to ambulate without significant difficulty, states that his symptoms are much improved from prior, I recommended he follow up with Orthopedics to potentially get outpatient MRI and repeat evaluation of his hip. Discharge Plan Departure Patient Disposition: Home Clinical Impression: Acute hip pain Activity Restrictions/Additional Instructions: You were seen in the emergency department for right hip pain fortunately the Orthopedic team does not believe that you need a hip joint aspiration at this time based on your imaging and lab work. Please follow up with the orthopedic doctors as soon as possible for re-evaluation. If you have worsening symptoms please return to the emergency department Prescriptions: No Action isosorbide mononitrate 30 mg tablet extended release 24 hr 30 mg PO DAILY clopidogrel 75 mg tablet 75 mg DAILY spironolactone 25 mg tablet 25 mg PO DAILY levothyroxine 25 mcg tablet 25 mcg PO QAM hydromorphone 2 mg tablet 1 mg PO Q6H PRN (Reason: severe pain) nitroglycerin 0.4 mg tablet, sublingual 0.4 mg sublingual PRN PRN (Reason: Chest Pain) glucosamine sulfate [Glucosamine] 750 mg Tablet 1,500 mg PO DAILY Rx Instructions: administer with a meal metoprolol tartrate 25 mg tablet 25 mg PO BID omega 6-giq-dhl-fish oil [Fish Oil] 1,000 (120-180) mg Capsule 2 cap PO DAILY dabigatran etexilate 150 mg capsule 150 mg PO DAILY Patient Comments: [NO ORIGINAL SIG] atorvastatin 40 mg Tablet 40 mg PO BEDTIME tamsulosin 0.4 mg Capsule 0.8 mg PO BEDTIME Aleve PM 220-25 mg Tablet 1 tab PO BEDTIME finasteride 5 mg tablet 5 mg PO BEDTIME aspirin 81 mg Tablet,Delayed Release (Dr/Ec) 81 mg PO BID Qty: 90 0RF acetaminophen 325 mg Tablet 650 mg PO Q6H PRN (Reason: Fever/Mild Pain (1-3)) Qty: 120 0RF ibuprofen 400 mg Tablet 400 mg PO Q4H PRN (Reason: Pain, Mild (1-3)) Qty: 100 0RF omega-3 fatty acids [Fish Oil Concentrate] 1,000 mg capsule 1,000 mg PO DAILY Referrals: Shirley Mitchell MD [Primary Care Provider] - Stand Alone Forms: Patient Portal/API/Survey
[2024-06-07 20:25] LABS: Add Manual Diff / Slide Review NO; Basophils Absolute Auto 0 /uL (0-100); Basophils Percent Auto 0.8 % (0-2); Eosinophils Absolute Auto 200 /uL (0-450); Eosinophils Percent Auto 4.2 % (2-4); Hematocrit 27.6 % (41-53); Hemoglobin 9.4 g/dL (13.5-17.5); Lymphocytes Absolute Auto 600 /uL (1100-4500); Lymphocytes Percent Auto 10.4 % (25-40); Mean Corpuscular HGB Conc 34.2 % (30-36); Mean Corpuscular Hemoglobin 30.1 PG (26-34); Mean Corpuscular Volume 88.1 fL (80-100); Monocytes Absolute Auto 500 /uL (0-900); Monocytes Percent Auto 9.2 % (3-14); Neutrophils Absolute Auto 4500 /uL (1500-7000); Neutrophils Percent Auto 75.4 % (50-75); Platelet Count 241 X10^3/uL (150-400); Red Blood Cell Count 3.14 X10^6/uL (4.5-5.9); Red Cell Distribution Width 15.3 % (11.6-14.8)
[2024-06-07 20:37] LABS: Alanine Aminotransferase 28 IU/L (<50); Albumin 3.5 g/dL (3.5-5.0); Albumin Globulin Ratio 1.2 (1.0-2.8); Alkaline Phosphatase 132 U/L (38-126); Aspartate Aminotransferase 27 IU/L (17-59); BUN Creatinine Ratio 19.9 (6-22); Bilirubin Total 0.7 mg/dL (0.2-1.3); Blood Urea Nitrogen 27 mg/dL (9-20); C-Reactive Protein Quant 4.2 mg/dL (<1.0); Calcium 9.4 mg/dL (8.4-10.2); Carbon Dioxide 23 mmol/L (22-32); Chloride 105 mmol/L (98-107); Estimated Glomerular Filt Rate 52 mL/min (>60); Globulin 2.9 g/dL (1.7-4.1); Glucose 101 mg/dL (80-110); HEMOLYSIS < 15 (0-50); Potassium 4.2 mmol/L (3.4-5.1); Sodium 137 mmol/L (137-145); Total Protein 6.4 g/dL (6.3-8.2)
[2024-06-07 20:43] LABS: Erythrocyte Sedimentation Rate 71 MM/HR (0-15)
--- NOTE | 2024-06-07 21:04 | PC.NURSE ---
Patient back from CT, given a cup of water
--- NOTE | 2024-06-07 23:42 | PC.NURSE ---
Patient was able to get up and walk with a walker in the room
[2024-06-08 00:06] VITALS: TEMP 36.6
== END 2024-06-08 00:08 | disposition home or self-care (01) ==
PROVIDERS: Emergency Provider Emergency Medicine; PCP Student in an Organized Health Care Education/Training Program
DX: M25.551 Pain in right hip (principal); Z96.641 Presence of right artificial hip joint
CPT/HCPCS: 72193; 80053; 85025; 85651; 86140; 99281; 99284; Q9967

== ENCOUNTER 2024-06-11 00:55 | Emergency (ER) | payer OTHER, SELFPAY ==
[2024-04-11 11:14] VITALS: BMI 30.6
[2024-06-11 00:59] VITALS: BP 99/56; PULSE 57; PULSE 60; RESP 18; TEMP 36.6; O2SAT 100; O2SAT 99; BMI 30.4
[2024-06-11 01:00] VITALS: PULSE 59; O2SAT 100
[2024-06-11 01:30] VITALS: PULSE 57; O2SAT 97
--- NOTE | 2024-06-11 01:46 | ED.EXTPRO ---
HPI - Extremity Problem General Chief complaint: Extremity Problem,Nontraumatic Stated complaint: right hip pain Time Seen by Provider: 06/11/24 01:16 Source: patient and EMS Mode of arrival: EMS History of Present Illness HPI Narrative: Patient 84-year-old male who had right hip replacement in April has had multiple ED visits this month. Presents today with increasing right hip pain. Reports that he took a 1000 mg of Tylenol and 2.5 mg of oxycodone. Pain was quite excruciating but now after 2 hours the pain medicine seems to have kicked in. Patient has been to the ED multiple times over last 1 month. He has been hospitalized twice once it [facility] for angina he had stents placed in April. He has had ongoing low back pain he had an MRI at [facility]. He had a repeat MRI here 05/19/2024 which showed severe right foraminal narrowing L5-S1. Patient was ultimately transferred to [facility] for surgical evaluation. Per patient and report he was not a surgical candidate. He was discharged from [place] to a rehab center and he was released last week. He was doing well. He does get oxycodone 2.5 mg before bed because they noticed he was having increased pain at bedtime. However tonight pain was much worse. He was seen and evaluated in the ER again on June 07. He would blood work and a CT at that time. He is important with his primary care provider tomorrow. Related Data Home Medications Medication Instructions Recorded Confirmed omega-3 fatty acids 1,000 mg 1,000 mg PO DAILY 11/06/19 05/19/24 capsule (Fish Oil Concentrate) atorvastatin 40 mg tablet 40 mg PO BEDTIME 04/08/24 05/19/24 finasteride 5 mg tablet 5 mg PO BEDTIME 04/08/24 05/19/24 naproxen 220 mg-diphenhydramine 25 1 tab PO BEDTIME 04/08/24 05/19/24 mg tablet (Aleve PM) tamsulosin 0.4 mg capsule 0.8 mg PO BEDTIME 04/08/24 05/19/24 clopidogrel 75 mg tablet 75 mg DAILY 05/19/24 05/19/24 dabigatran etexilate 150 mg capsule 150 mg PO DAILY 05/19/24 05/19/24 glucosamine sulfate 750 mg tablet 1,500 mg PO DAILY 05/19/24 05/19/24 hydromorphone 2 mg tablet 1 mg PO Q6H PRN severe pain 05/19/24 05/19/24 isosorbide mononitrate 30 mg 30 mg PO DAILY 05/19/24 05/19/24 tablet,extended release 24 hr levothyroxine 25 mcg tablet 25 mcg PO QAM 05/19/24 05/19/24 metoprolol tartrate 25 mg tablet 25 mg PO BID 05/19/24 05/19/24 nitroglycerin 0.4 mg sublingual 0.4 mg sublingual PRN PRN Chest 05/19/24 05/19/24 tablet Pain omega 5-lfp-nbm-fish oil 1,000 mg 2 cap PO DAILY 05/19/24 05/19/24 (120 mg-180 mg) capsule (Fish Oil) spironolactone 25 mg tablet 25 mg PO DAILY 05/19/24 05/19/24 Previous Rx's Medication Instructions Recorded acetaminophen 325 mg tablet 650 mg (2 x 325 mg) PO Q6H PRN 04/12/24 Fever/Mild Pain (1-3) #120 tabs aspirin 81 mg tablet,delayed 81 mg PO BID #90 tabs 04/12/24 release ibuprofen 400 mg tablet 400 mg PO Q4H PRN Pain, Mild (1-3) 04/12/24 #100 tabs Allergies Allergy/AdvReac Type Severity Reaction Status Date / Time methocarbamol [From Robaxin] AdvReac Mild Hallucinati Verified 04/08/24 09:14 ng Patient History Medical History (Updated 06/11/24 @ 02:17 by Debbie Pederson DO) History of COVID-19 (2019) BCC (basal cell carcinoma) Pre-diabetes HLD (hyperlipidemia) Neoplasm of uncertain behavior of right kidney BPH w urinary obs/LUTS Incomplete emptying of bladder Prostate cancer (~2019) Abnormal prostate biopsy Nodular prostate Surgical History Hx of SONAM History of surgery History of back surgery (~1979) H/O circumcision Social History household members: spouse Smoking Status: Never smoker alcohol intake: current Smoking Status: Never smoker Exam Initial Vital Signs Initial Vital Signs: Vital Signs Temperature 97.8 F 06/11/24 00:59 Pulse Rate 57 L 06/11/24 00:59 Respiratory Rate 18 06/11/24 00:59 Blood Pressure 99/56 L 06/11/24 00:59 Pulse Oximetry 99 06/11/24 00:59 Oxygen Delivery Method Room Air 06/11/24 00:59 GENERAL: Alert 84-year-old male and in no acute distress. HEENT: Head atraumatic,EOMI, pupils reactive, face symmetric, moist mucous membranes CARDIOVASCULAR: Regular rate and rhythm without murmurs, rubs or gallops. RESPIRATORY: Breath sounds equal bilaterally, no wheezes rales or rhonchi. ABDOMEN: Soft, nontender. Normoactive bowel sounds all 4 quadrants. No guarding or rebound. EXTREMITIES: Normal range of motion, no clubbing or edema. Neurovascularly intact Able to lift right leg but not hold it he has pain in his right buttock and right lower lumbar area NEUROLOGICAL: Alert and oriented x4.Normal gait and speech. Cranial nerves II through XII grossly intact. Ambulates with walker. Sensation in medial thighs intact SKIN: Warm, dry, no laceration, no petechiae, no rashes or lesions. Course Orders Ordered: Discontinued Medications Oxycodone HCl (Oxycodone Ir 5 Mg Tablet) 5 mg PO NOW ONE Stop: 06/11/24 02:17 Last Admin: 06/11/24 02:19 Dose: 5 mg Documented By: MR Vital Signs Vital signs: Vital Signs - 8 hr 06/11/24 00:59 06/11/24 00:59 06/11/24 00:59 Temperature 97.8 F Pulse Rate 57 L 60 Respiratory Rate 18 Blood Pressure 99/56 L 99/56 L Pulse Oximetry 99 100 Oxygen Delivery Method Room Air 06/11/24 01:00 06/11/24 01:30 06/11/24 02:00 Temperature Pulse Rate 59 L 57 L 59 L Respiratory Rate Blood Pressure Pulse Oximetry 100 97 95 Oxygen Delivery Method MDM - Extremity (Nontraumatic) MDM Narrative Medical decision making narrative: Patient has had significant workup over the last 2 months including 2 MRIs he has had multiple hospitalizations presenting today with acute on chronic right hip pain. He was seen evaluated here 4 days ago for the same. gave him many medications prior to arrival and now they seem to be working. He is able to stand and ambulate with a walker. At this time I do not see any need for further workup. Seems to be on going issue. Discussed with him pain management. Oxycodone can go up to 5 mg as needed. Not a great candidate for NSAIDs due to Pradaxa Plavix and aspirin. He was given 5 mg oxycodone here in the ED. Appointment tomorrow with primary care provider. At this time I see no need for further evaluation Discharge Plan Departure Patient Disposition: Home Clinical Impression: Chronic pain of right hip Activity Restrictions/Additional Instructions: *You have been diagnosed with acute on chronic right hip pain *What to do: Please discuss with your primary care provider proper pain control *Continue to take medications as directed Oxycodone you may take 2.5-5 mg every 4-6 hours if needed for severe pain Tylenol 1000 mg every 6 hours if needed for [id number] pain *Follow up with your primary care provider in 2-3 days or call [phone] *Return to ER if you should have any new, worsening or concerning symptoms Prescriptions: No Action isosorbide mononitrate 30 mg tablet extended release 24 hr 30 mg PO DAILY clopidogrel 75 mg tablet 75 mg DAILY spironolactone 25 mg tablet 25 mg PO DAILY levothyroxine 25 mcg tablet 25 mcg PO QAM hydromorphone 2 mg tablet 1 mg PO Q6H PRN (Reason: severe pain) nitroglycerin 0.4 mg tablet, sublingual 0.4 mg sublingual PRN PRN (Reason: Chest Pain) glucosamine sulfate [Glucosamine] 750 mg Tablet 1,500 mg PO DAILY Rx Instructions: administer with a meal metoprolol tartrate 25 mg tablet 25 mg PO BID omega 9-idn-oje-fish oil [Fish Oil] 1,000 (120-180) mg Capsule 2 cap PO DAILY dabigatran etexilate 150 mg capsule 150 mg PO DAILY Patient Comments: [NO ORIGINAL SIG] atorvastatin 40 mg Tablet 40 mg PO BEDTIME tamsulosin 0.4 mg Capsule 0.8 mg PO BEDTIME Aleve PM 220-25 mg Tablet 1 tab PO BEDTIME finasteride 5 mg tablet 5 mg PO BEDTIME aspirin 81 mg Tablet,Delayed Release (Dr/Ec) 81 mg PO BID Qty: 90 0RF acetaminophen 325 mg Tablet 650 mg PO Q6H PRN (Reason: Fever/Mild Pain (1-3)) Qty: 120 0RF ibuprofen 400 mg Tablet 400 mg PO Q4H PRN (Reason: Pain, Mild (1-3)) Qty: 100 0RF omega-3 fatty acids [Fish Oil Concentrate] 1,000 mg capsule 1,000 mg PO DAILY Referrals: Shirley Mitchell MD [Primary Care Provider] - Stand Alone Forms: Patient Portal/API/Survey
[2024-06-11 02:00] VITALS: PULSE 59; O2SAT 95
--- NOTE | 2024-06-11 02:14 | PC.NURSE ---
Patient ambulatory in the see with a walker
[2024-06-11] MEDS: OXYCODONE IR 5 MG TABLET PO (02:19)
== END 2024-06-11 02:32 | disposition home or self-care (01) ==
PROVIDERS: Emergency Provider Emergency Medicine; PCP Student in an Organized Health Care Education/Training Program
DX: M25.551 Pain in right hip (principal); Z96.641 Presence of right artificial hip joint
CPT/HCPCS: 99283

== ENCOUNTER 2024-09-12 14:15 | Outpatient (RCR) | payer OTHER, SELFPAY ==
[2024-04-11 11:14] VITALS: BMI 30.6
== END 2024-09-12 16:15 ==
LOC: CAR 14:15
PROVIDERS: PCP Student in an Organized Health Care Education/Training Program; Referring Provider Student in an Organized Health Care Education/Training Program; Visit Provider Student in an Organized Health Care Education/Training Program
DX: I21.4 Non-ST elevation (NSTEMI) myocardial infarction (principal)
CPT/HCPCS: 93798